=== PATIENT | female | born 1960 | race Hispanic/Latino ===

== ENCOUNTER 2017-01-18 22:08 | Inpatient (IN) | payer OTHER, SELFPAY ==
[~2017-01-18 22:08] MED LIST: ISOVUE-370 76%-LOCM 1 ML ONE
[2017-01-18 22:56] LABS: #Lymphocytes 0.6 thou/uL (1.20-3.40); #Monocytes 0.3 thou/uL (0.11-0.59); #Neutrophils 2.8 thou/uL (1.40-6.50); %Basophils 0.4 % (0.0-1.0); %Eosinophils 1.2 % (0.0-10.0); %Monocytes 7.2 % (0.0-10.0); Hematocrit 29.6 % (36.0-47.0); Macrocytosis SLIGHT = 6-15 cells (100X) (0-5/hpf); Mean Platelet Volume 8.8 fL (7.4-10.4); Red Blood Cell (RBC) Count 2.81 mill/uL (4.20-5.40); White Blood Cell (WBC) Count 3.7 thou/uL (4.8-10.8)
[2017-01-18 23:00] LABS: ALT (SGPT) 35 U/L (8-55); ALT (SGPT) 36 U/L (8-55); AST (SGOT) 86 U/L (5-34); AST (SGOT) 88 U/L (5-34); Alkaline Phosphatase 170 U/L (40-150); Alkaline Phosphatase 178 U/L (40-150); Anion Gap 15 mmol/L (10-20); BUN (Urea Nitrogen) 16 mg/dL (9.8-20.1); Bilirubin, Direct 1.4 mg/dL (0.1-0.3); Bilirubin, Total 2.3 mg/dL (0.2-1.2); Bilirubin, Total 2.4 mg/dL (0.2-1.2); Calc. Creatinine Clearance 0 mL/min (70-130); Calcium 8.6 mg/dL (7.8-10.44); Carbon Dioxide 19 mmol/L (22-29); Chloride 103 mmol/L (98-107); Estimated GFR-MDRD 31; Globulin 5.4 g/dL (2.4-3.5); Protein, Total 7.5 g/dL (6.0-8.3); Protein, Total 7.8 g/dL (6.0-8.3)
[2017-01-18 23:14] LABS: Bilirubin Negative (Negative); Blood, Urine Negative (Negative); Glucose, Urine (Dipstick) Negative (Negative); Ketone, Urine Trace mg/dL (Negative); Nitrite Negative (Negative); Protein, Urine (Dipstick) Negative (Neg-Trace)
[2017-01-18 23:16] LABS: Bacteria/HPF 4+ HPF (None Seen); Hyaline Casts/LPF 0-3 HYALINE CAST LPF (0-3 Hyaline); Squamous Epithelial None Seen HPF (0-3); WBC/HPF 21-50 HPF (0-3)
[2017-01-18 23:17] LABS: Troponin I 0.091 ng/mL (< 0.028)
--- NOTE | 2017-01-18 23:19 | RAD ---
SINGLE VIEW OF THE CHEST: Comparison: 11-25-16 History: Chronic liver failure with altered mental status. FINDINGS: Single view of the chest shows a normal sized cardiomediastinal silhouette. There is no evidence of consolidation, mass, or pleural effusion. The bones are unremarkable. IMPRESSION: No evidence of acute cardiopulmonary disease. POS: [facility]
--- NOTE | 2017-01-18 23:25 | CT ---
CT BRAIN WITHOUT CONTRAST: History: Altered mental status since 3 o'clock today. Hematuria and hematochezia. Comparison: 11-25-16 Technique: Multiple contiguous axial images were obtained in a CT of the brain without contrast. FINDINGS: There are scattered hypodensities in the subcortical and periventricular white matter, likely second mary to small vessel ischemic disease. No large confluent infarction is seen. There is no evidence of hydrocephalus, intracranial hemorrhage or extraaxial fluid collection. The calvarium and overlying soft tissues are unremarkable. The visualized paranasal sinuses and mast oid air cells are well aerated. IMPRESSION: No evidence of acute intracranial abnormality. POS: [facility]
[2017-01-18 23:26] LABS: RBC/HPF None Seen HPF (0-3)
--- NOTE | 2017-01-18 23:30 | CT ---
CT ABDOMEN AND PELVIS WITH CONTRAST: Comparison: 02-21-15 History: Altered mental status, liver failure. Hematochezia and hematuria. Technique: Multiple contiguous axial images were obtained in a CT of the abdomen and pelvis with con trast. Coronal reformats were performed. FINDINGS: The liver is nodular and cirrhotic. There is a small amount of ascites in the abdomen and pelvis. Th ere are calcified gallstones in the gallbladder. No biliary dilatation is seen. The kidneys, adrenal glands, spleen, and pancreas are unremarkable. There are splenic varices. No abdominal or pelvic ly mphadenopathy are seen. The reproductive organs are unremarkable. Moderate stool is seen in the colon. The small bowel is no rmal in caliber. No abdominal or pelvic lymphadenopathy are seen. There is a 7.6 cm ventral hernia containing nonobstructed bowel. Degenerative changes are seen in the spine. The visualized inferior thorax is unremarkable. IMPRESSION: 1. Cirrhosis of the liver with sequellae of portal hypertension. 2. Cholelithiasis. 3. Ventral hernia. POS: [facility]
[2017-01-18] MEDS ORDERED: Sodium Chloride 0.9% 100 ML ONE (23:57)
[2017-01-18] MEDS ORDERED: cefTRIAXone\\ROCEPHIN 1 GM VIAL ONE (23:57)
[2017-01-19] MEDS ORDERED: Ondansetron HCl/PF 4 MG/2 ML Vial IVP PRN (00:21)
[2017-01-19] MEDS ORDERED: Dextrose 5% in Water 1,000 ML IV PRN (00:27)
[2017-01-19] MEDS ORDERED: HumaLOG 300 UNITS/3 ML VIAL SC PRN (00:27)
[2017-01-19] MEDS ORDERED: Dextrose 50% Abboject 50 ML SYRINGE SLOW IVP PRN (00:27)
--- NOTE | 2017-01-19 01:09 | PDOC.EVN ---
Event Note - Event Note Event Note: [id number] H&P Dictated 1. HEPATIC ENCEPHALOPATHY 2. PANCYTOPENIA 3. H/O GI Bleed 4. DM Type 2
[2017-01-19] MEDS ORDERED: Octreotide Acetate 1,250 MCG in Sodium Chloride 0.9% 250 ML 250 ML IVPB SCH (01:15)
[2017-01-19] MEDS ORDERED: Octreotide Acetate 50 MCG/ML AMP SLOW IVP SCH (01:30)
[2017-01-19 03:50] LABS: #Lymphocytes 0.4 thou/uL (1.20-3.40); #Monocytes 0.2 thou/uL (0.11-0.59); #Neutrophils 1.7 thou/uL (1.40-6.50); %Eosinophils 1.5 % (0.0-10.0); %Lymphocytes 16.5 % (21.0-51.0); %Monocytes 8.9 % (0.0-10.0); Mean Platelet Volume 9.1 fL (7.4-10.4); Red Blood Cell (RBC) Count 2.54 mill/uL (4.20-5.40); White Blood Cell (WBC) Count 2.3 thou/uL (4.8-10.8)
[2017-01-19 03:52] LABS: ALT (SGPT) 32 U/L (8-55); AST (SGOT) 80 U/L (5-34); Alkaline Phosphatase 153 U/L (40-150); Anion Gap 15 mmol/L (10-20); BUN (Urea Nitrogen) 16 mg/dL (9.8-20.1); Calc. Creatinine Clearance 0 mL/min (70-130); Calcium 8.6 mg/dL (7.8-10.44); Carbon Dioxide 17 mmol/L (22-29); Chloride 105 mmol/L (98-107); Estimated GFR-MDRD 36; Globulin 5.1 g/dL (2.4-3.5)
[2017-01-19] MEDS: Sodium Chloride 0.9% 1,000 ML IV SCH ×2 (05:51→22:26)
[2017-01-19] MEDS ORDERED: Pantoprazole 40 MG VIAL ONE (05:52)
[2017-01-19] MEDS: Pantoprazole 40 MG VIAL IVP SCH ×2 (05:57→16:05)
--- NOTE | 2017-01-19 06:18 | HP ---
DATE OF ADMISSION: 01/19/2017 CHIEF COMPLAINT: Confusion. HISTORY OF PRESENT ILLNESS: The patient is a 56-year-old female with past medical history of ORELLANA, diabetes mellitus type 2, hypertension, obesity, now came to the hospital because of confusion. The patient started having confusion since this afternoon and confusion associated with unsteady gait also. The patient had some tremor intermittent. Denies any fever, denies any chills, denies any nausea. Denies any vomiting. She complains of bloody stool. Denies any active bleeding by the ED physician on rectal exam. The patient did complain of bloody stool. Denies any fever, denies any chills, denies any chest pain, denies any fever, denies any dizziness. Patient was slightly lethargic in the ER, but able to awake and able to converse. PAST MEDICAL HISTORY: As per HPI. PAST SURGICAL HISTORY: EGD, , umbilical hernia repair. SOCIAL HISTORY: Denies smoking, denies alcohol, denies any drugs. MEDICATIONS: Reviewed. FAMILY HISTORY: Positive for diabetes mellitus. REVIEW OF SYSTEMS: CONSTITUTIONAL: Denies any fever, denies any chills. EYES: Denies any vision problems. ENT: Negative. CARDIOVASCULAR: Denies any chest pain, denies any palpitations. RESPIRATORY: Denies any cough, denies production. GASTROINTESTINAL: Positive for bleeding per rectum. CRANIAL NERVE SYSTEM: Denies syncope. Positive for confusion. Positive for unsteady gait. INTEGUMENTARY: Denies any rash. GENITOURINARY: Denies dysuria. All other review of systems are reviewed and are negative. PHYSICAL EXAMINATION: CONSTITUTIONAL/VITAL SIGNS: At the time of H\T\P performed, blood pressure is 110/50, afebrile, respiratory rate 18, pulse ox is 98%. GENERAL: The patient appears tired and lethargic. HEENT: ENT patent. Hearing normal. Teeth intact. Tongue is moist. NECK: Supple, no JVD. CARDIOVASCULAR: S1, S2 present. Regular rate and rhythm. No murmurs, no rubs , no gallops. RESPIRATORY SYSTEM: No wheezing, no rhonchi. Breath sounds bilaterally. ABDOMEN: Distended, no guarding, no organomegaly. MUSCULOSKELETAL: No edema. NEUROLOGIC: Cranial nerve system, is lethargic, but arousable. Oriented to place and person. Speech clear. PSYCHIATRIC: Mood appears normal. INTEGUMENT: No rashes seen. LABORATORY DATA: At the time of H\T\P performed; white count 2.7, hemoglobin 9.7, platelet count is 65. BMP showed sodium 133, potassium 3.9, chloride 103, CO2 of 19, BUN 16, creatinine 1.71, total bilirubin 2.4, albumin 2.1, ammonia 118. UA positive for WBCs 21-50, positive for bacteria. ASSESSMENT AND PLAN: The patient is a 56-year-old female. 1. Hepatic encephalopathy. Plan to start the patient on lactulose 20 grams p.o. q.6 h. We will give lactulose until the patient had initial bowel movement. We will monitor the patient closely. 2. History of gastrointestinal bleed. Stool occult blood is positive. Plan to check H\T\H q.6 hours, plan to place the patient on octreotide drip and ____ _ drip also and Protonix drip. We will monitor hemoglobin closely. We will consult GI to the patient. 3. History of diabetes mellitus type 2. Monitor blood sugars. We will do insulin sliding scale. 4. History of pancytopenia, monitor counts, repeat CBC in a.m. We will do H\T\ H q.6 hours. 5. Acute kidney injury. Monitor creatinine closely and hold diuretics, gentle IV fluids. 6. History of hypertension. Hold blood pressure meds and we will monitor the patient. BP meds slowly. The case was discussed in detail with the patient. Patient is a full code. Discussed with the patient's also at the bedside. YUE
[2017-01-19 07:46] LABS: Magnesium 1.6 mg/dL (1.6-2.6)
[2017-01-19 07:50] LABS: Phosphorus 3.3 mg/dL (2.3-4.7)
[2017-01-19] MEDS ORDERED: Nadolol 40 MG TAB PO SCH (09:00)
[2017-01-19] MEDS ORDERED: Sodium Bicarbonate Tab 325 MG TAB PO SCH (09:00)
[2017-01-19] MEDS ORDERED: Insulin NPH/Reg Insulin Hm 300 UNITS/3 ML VIAL SC SCH (09:00)
[2017-01-19] MEDS ORDERED: Famotidine/PF 20 mg/2ml Vial SLOW IVP SCH (09:00)
[2017-01-19 12:16] LABS: Hematocrit 25.5 % (36.0-47.0)
[2017-01-19] MEDS ORDERED: Famotidine/PF 20 mg/2ml Vial ONE (12:23)
[2017-01-19] MEDS ORDERED: Calcium Carbonate 500 MG ChewTAB PO PRN (12:28)
[2017-01-19] MEDS ORDERED: Ondansetron ODT 4 MG TAB PO PRN (12:28)
[2017-01-19] MEDS ORDERED: cefTRIAXone\\ROCEPHIN 1 GM in Sodium Chloride 0.9% 100 ML IVPB SCH (14:00)
[2017-01-19] MEDS: Sodium Bicarbonate Tab 325 MG TAB PO SCH ×2 (15:51→22:26)
[2017-01-19] MEDS ORDERED: Albumin 25% 25 GM/100 ML BOT IVPB SCH (17:00)
[2017-01-19 18:15] LABS: Hematocrit 30.4 % (36.0-47.0)
[2017-01-19 18:23] LABS: Anion Gap 16 mmol/L (10-20); BUN (Urea Nitrogen) 15 mg/dL (9.8-20.1); Calc. Creatinine Clearance 55 mL/min (70-130); Calcium 8.5 mg/dL (7.8-10.44); Carbon Dioxide 17 mmol/L (22-29); Chloride 105 mmol/L (98-107); Estimated GFR-MDRD 38
--- NOTE | 2017-01-20 00:20 | CON ---
DATE OF CONSULTATION: 01/19/2017 CHIEF COMPLAINT: Confusion. HISTORY OF PRESENT ILLNESS: Ms. Rosas is a 56-year-old woman with end-stage liver disease who c vicki to the emergency room last night with confusion. She was last admitted in May with hepatic encephalopathy. She has had no nausea or vomiting. No known blood in the stool. No chest pain or shortness of breath. The admitting physician note references blood in the stool; however, the patie nt does not indicate having seen any blood currently. She has had no bowel movement since she has b een in the intermediate care unit. She apparently had a bowel movement in the ER; however, unable t o determine with this stool looked like. PAST MEDICAL HISTORY: Cirrhosis, likely secondary to nonalcoholic fatty liver disease. Small varic es without red signs by EGD in 06/2015. History of ascites with spontaneous bacterial peritonitis, diabetes mellitus type 2, hypertension, obesity. PAST SURGICAL HISTORY: , umbilical hernia repair. FAMILY HISTORY: Negative for GI malignancy. ALLERGIES: No known drug allergies. SOCIAL HISTORY: No alcohol, tobacco or drugs. MEDICATIONS: Prior to admission, glipizide, thiamine, spironolactone, pantoprazole, multiple vitami n, Levemir, lactulose 15 mL 3 to 4 times per day, furosemide 20 mg daily, folic acid, B12 and the sp ironolactone was 50 mg daily. Her indicated that she has only been taking the lactulose lat varinder. I am not clear on the actual status of her diuretic use. REVIEW OF SYSTEMS: Negative x10 systems reviewed except as stated in the history of present illness . The communication was limited by the language barrier. PHYSICAL EXAMINATION: VITAL SIGNS: Temperature 98.5, pulse 102, blood pressure 96/55. GENERAL: She is in no acute distress. She is awake and alert. HEENT: Eyes have no scleral icterus. Oropharynx is clear, without lesions. NECK: No cervical or supraclavicular lymphadenopathy. LUNGS: Clear to auscultation bilaterally. HEART: Regular rate and rhythm. ABDOMEN: Obese, bowel sounds are present, nontender, nondistended. EXTREMITIES: Trace lower extremity edema. NEUROLOGIC: She has no asterixis. LABORATORY DATA: White blood cell count 2.3, hemoglobin 8.8, platelets 45,000. INR 1.3. Creatinin e 1.43. IMAGING: CT scan of the abdomen and pelvis shows ventral hernia. A small amount of ascites was not ed, but not adequate for paracentesis. IMPRESSION: 1. Hepatic encephalopathy. No obvious triggering factor at this point. Her mental status has retu rned back to normal according to her family; however, she is not having bowel movements this afterno on. She apparently did have a bowel movement in the ER with the lactulose. 2. Cirrhosis secondary to prior fatty liver disease. 3. Ascites. She has a small amount of ascites and trace lower extremity edema. She does have a hi story of spontaneous bacterial peritonitis. Inadequate fluid in her belly to tap now and she is non tender. She has apparently been on low dose spironolactone and Lasix; however, she has chronic froy l insufficiency and unclear if she has actually been taking the diuretics recently. Given the prior spontaneous bacterial peritonitis, then she should be on prophylaxis with Bactrim daily and this wi ll be started. 4. Pancytopenia secondary to hypersplenism. 5. Hepatoma screening. The CT scan with contrast did not show an obvious mass. I will check an al pha fetoprotein. PLAN: 1. Increase the lactulose to 45 mL 4 times a day, this is actually closer to her home dose. 2. Low salt diet. 3. Check alpha fetoprotein. 4. Recheck the hemoglobin in the morning. No need to check it more frequently than daily. She has no overt bleeding at this point. 5. Restart Bactrim-DS once daily for SBP prophylaxis. 6. She has not followed up in the office since her last hospitalization in May. She will need to schedule outpatient followup. Ideally, we give her Xifaxan daily, but given her lack of insuranc e, this has not been an option. 7. Stop octreotide drip as there is no evidence of overt bleeding. Stop propranolol as she has had prior SBP and renal insufficiency. She just had small varices without red signs on previous endosc opy.
[2017-01-20] MEDS: Pantoprazole 40 MG VIAL IVP SCH ×2 (03:34→12:50)
[2017-01-20 04:21] LABS: #Lymphocytes 0.1 thou/uL (1.20-3.40); #Neutrophils 2.3 thou/uL (1.40-6.50); %Basophils 1.9 % (0.0-1.0); %Eosinophils 0.9 % (0.0-10.0); %Lymphocytes 5.6 % (21.0-51.0); %Monocytes 0.9 % (0.0-10.0); Hematocrit 24.6 % (36.0-47.0); Mean Platelet Volume 9.1 fL (7.4-10.4); Red Blood Cell (RBC) Count 2.27 mill/uL (4.20-5.40); White Blood Cell (WBC) Count 2.5 thou/uL (4.8-10.8)
[2017-01-20 04:38] LABS: ALT (SGPT) 30 U/L (8-55); AST (SGOT) 80 U/L (5-34); Alkaline Phosphatase 142 U/L (40-150); Anion Gap 17 mmol/L (10-20); BUN (Urea Nitrogen) 17 mg/dL (9.8-20.1); Bilirubin, Total 2.6 mg/dL (0.2-1.2); Calc. Creatinine Clearance 59 mL/min (70-130); Calcium 8.4 mg/dL (7.8-10.44); Carbon Dioxide 17 mmol/L (22-29); Chloride 105 mmol/L (98-107); Estimated GFR-MDRD 41; Globulin 4.7 g/dL (2.4-3.5); Protein, Total 6.9 g/dL (6.0-8.3)
[2017-01-20] MEDS ORDERED: Nadolol 40 MG TAB PO SCH (09:00)
[2017-01-20] MEDS ORDERED: Rifaximin 550 MG TAB PO SCH (09:15)
[2017-01-20] MEDS ORDERED: Lactulose 10 GM/15 ML Oral Solution PR SCH ×2 (11:15→17:15)
[2017-01-20] MEDS: Meropenem 1 GM in Sodium Chloride 0.9% 100 ML IVPB SCH ×2 (13:56→21:24)
[2017-01-20] MEDS: Sodium Bicarbonate Tab 325 MG TAB PO SCH (14:07)
--- NOTE | 2017-01-20 14:53 | PRG ---
DATE OF SERVICE: 01/20/2017 SUBJECTIVE: She had a bowel movement last night. This morning, she was actually more confused and less easily responsive. She did have another pasty yellow bowel movement this morning: OBJECTIVE: VITAL SIGNS: Temperature 98.3, pulse 106 and blood pressure 103/51. GENERAL: She is in no acute distress. She awakens briefly to verbal stimulation and falls back asl eep. LUNGS: Clear to auscultation bilaterally. HEART: Regular rate and rhythm. ABDOMEN: Soft. No obvious tenderness. Bowel sounds are present. EXTREMITIES: No lower extremity edema. LABORATORY DATA: White blood cell count 2.5, hemoglobin 8.3 and platelets 45. Creatinine 1.35, sheldon irubin 2.6, AST 80, ALT 30, alkaline phosphatase 142 and albumin 2.2. IMPRESSION: 1. Hepatic encephalopathy. Her mental status is actually somewhat worsened today. We will give a lactulose enema. She does not appear to be safe for oral intake at this time due to her mental stat us. 2. Cirrhosis secondary to fatty liver disease. 3. Small amount of ascites. She does have a history of spontaneous bacterial peritonitis. We will continue Bactrim DS once daily for spontaneous bacterial peritonitis prophylaxis. 4. Pancytopenia secondary to hypersplenism. 5. Hepatoma screening. 6. Hemoglobin has fluctuated between 8.3 and 9.7. There has been no overt bleeding with the last b owel movement. She has had some pink-tinged stool with the lactulose enema, but this is with the re ctal tube in place. This may be due to local irritation from the rectal tube. RECOMMENDATIONS: 1. Lactulose enema. Repeat if she does not awaken adequately to take the lactulose orally. 2. When she is awake from the enema, then increase the lactulose to 45 mL every 4 hours. 3. Low salt diet when she is awake enough to take oral diet. 4. Await alpha-fetoprotein.
[2017-01-20] MEDS: Sodium Chloride 0.9% 1,000 ML IV SCH (19:44)
--- NOTE | 2017-01-20 20:55 | PDOC.PN ---
- Subjective Encounter Start Date: 01/20/17 Encounter Start Time: 12:00 Patient seen and examined. Lethargic. - Objective Resuscitation Status: Resuscitation Status FULL:Full Resuscitation MAR Reviewed: Yes Vital Signs & Weight: Vital Signs (12 hours) Temp Pulse Resp BP BP Pulse Ox 01/20/17 15:50 97.7 F 110 H 16 96/54 L 98 01/20/17 12:00 98.3 F 106 H 15 103/51 L 100 Weight Weight 174 lb I&O: 01/19/17 01/20/17 01/21/17 06:59 06:59 06:59 Intake Total 1034 710 Balance 1034 710 Result Diagrams: 01/21/17 03:45 01/21/17 03:45 Additional Labs: Accuchecks 01/20/17 01/20/17 01/20/17 20:33 16:06 10:36 POC Glucose 383 H 307 H 249 H 01/20/17 01/20/17 01/19/17 08:57 05:28 23:57 POC Glucose 207 H 342 H 356 H 01/19/17 16:53 POC Glucose 278 H EKG Reviewed by me: Yes (Tele SR) Phys Exam - Physical Examination Lethargic, grimacing on pain Respiratory: no wheezing, no rhonchi Cardiovascular: RRR, no rub Gastrointestinal: soft, non-tender, positive bowel sounds Musculoskeletal: no edema Dx/Plan (1) Toxic metabolic encephalopathy Code(s): G92 - TOXIC ENCEPHALOPATHY Status: Acute Comment: due to Hepatic encephalopathy. Ammonia 122 (2) Lactic acidosis Code(s): E87.2 - ACIDOSIS Status: Acute (3) UTI (urinary tract infection) Status: Acute (4) DM type 2 (diabetes mellitus, type 2) Status: Chronic Qualifiers: Comment: uncontrolled (5) Liver cirrhosis secondary to nonalcoholic steatohepatitis (ORELLANA) Code(s): K75.81 - NONALCOHOLIC STEATOHEPATITIS (ORELLANA); K74.60 - UNSPECIFIED CIRRHOSIS OF LIVER Status: Chronic - Plan cont current plan of care, plan discussed w/ family (they stated understanding) , DVT proph w/SCDs * Change Atbx to Meropenem * Cont Lactulose enema per GI * AM labs * Cont to monitor Review of Systems - Review of Systems Other: Cannot obtain due to sedation - Medications/Allergies Allergies/Adverse Reactions: Allergies Allergy/AdvReac Type Severity Reaction Status Date / Time No Known Drug Allergies Allergy Verified 01/19/17 15:25 Medications: Current Medications Calcium Carbonate (Tums) 1,000 mg PO Q4H PRN PRN Reason: Heartburn or Indigestion Dextrose/Water (Dextrose 50%) 25 gm SLOW IVP PRN PRN PRN Reason: Hypoglycemia Glucagon (Glucagon) 1 mg IM PRN PRN PRN Reason: Hypoglycemia Sodium Chloride (Normal Saline 0.9%) 1,000 mls @ 50 mls/hr IV .Q20H [facility] Last Admin: 01/20/17 19:44 Dose: 1,000 mls Dextrose/Water (D5w) 1,000 mls @ 0 mls/hr IV .Q0M PRN; As Directed PRN Reason: Hypoglycemia Meropenem 1 gm/ Sodium (Chloride) 100 mls @ 200 mls/hr IVPB Q8H [facility] Last Admin: 01/20/17 13:56 Dose: 100 mls Insulin Human Lispro (Humalog) 0 units SC .BEDTIME SLIDING SC PRN PRN Reason: Bedtime Correctional Scale Insulin Human Lispro (Humalog) 0 units SC .MILD SLIDING SCALE PRN PRN Reason: Mild Correctional Scale Lactulose (Lactulose) 30 gm PO Q4HR [facility] Last Admin: 01/20/17 18:19 Dose: Not Given Miscellaneous Medication (Pharmacy To Dose) 1 each IVPB ASDIR [facility] Ondansetron HCl (Zofran) 4 mg IVP Q6H PRN PRN Reason: Nausea/Vomiting Ondansetron HCl (Zofran Odt) 4 mg PO Q6H PRN PRN Reason: Nausea/Vomiting Pantoprazole Sodium (Protonix) 40 mg IVP Q12H [facility] Last Admin: 01/20/17 12:50 Dose: 40 mg Rifaximin (Xifaxan) 550 mg PO BID [facility] Sodium Bicarbonate (Bicarbonate, Sodium) 650 mg PO BID [facility] Last Admin: 01/20/17 14:07 Dose: Not Given Sodium Chloride (Flush - Normal Saline) 10 ml IVF Q12HR [facility] Last Admin: 01/20/17 12:41 Dose: 10 ml Sodium Chloride (Flush - Normal Saline) 10 ml IVF PRN PRN PRN Reason: Saline Flush Last Admin: 01/19/17 16:08 Dose: 10 ml
[2017-01-21] MEDS: Sodium Bicarbonate Tab 325 MG TAB PO SCH ×3 (01:20→20:13)
[2017-01-21] MEDS: Rifaximin 550 MG TAB PO SCH ×3 (01:20→20:10)
[2017-01-21] MEDS: Pantoprazole 40 MG VIAL IVP SCH ×3 (01:38→20:12)
[2017-01-21 04:13] LABS: #Lymphocytes 0.4 thou/uL (1.20-3.40); #Monocytes 0.3 thou/uL (0.11-0.59); #Neutrophils 4.4 thou/uL (1.40-6.50); %Eosinophils 0.2 % (0.0-10.0); %Lymphocytes 7.5 % (21.0-51.0); %Monocytes 6.7 % (0.0-10.0); Hematocrit 25.2 % (36.0-47.0); Mean Platelet Volume 9.3 fL (7.4-10.4); White Blood Cell (WBC) Count 5.1 thou/uL (4.8-10.8)
[2017-01-21 04:18] LABS: Prothrombin Time 26.8 SEC (12.0-14.7)
[2017-01-21 04:42] LABS: ALT (SGPT) 32 U/L (8-55); AST (SGOT) 73 U/L (5-34); Alkaline Phosphatase 135 U/L (40-150); Anion Gap 13 mmol/L (10-20); BUN (Urea Nitrogen) 22 mg/dL (9.8-20.1); Bilirubin, Total 2.4 mg/dL (0.2-1.2); Calc. Creatinine Clearance 51 mL/min (70-130); Calcium 8.4 mg/dL (7.8-10.44); Carbon Dioxide 17 mmol/L (22-29); Chloride 112 mmol/L (98-107); Estimated GFR-MDRD 35; Globulin 4.6 g/dL (2.4-3.5); Magnesium 1.4 mg/dL (1.6-2.6); Phosphorus 3.7 mg/dL (2.3-4.7); Protein, Total 6.7 g/dL (6.0-8.3)
[2017-01-21] MEDS: Meropenem 1 GM in Sodium Chloride 0.9% 100 ML IVPB SCH ×3 (05:48→20:09)
[2017-01-21] MEDS: HumaLOG 300 UNITS/3 ML VIAL SC PRN ×4 (06:08→20:19)
[2017-01-21] MEDS ORDERED: Magnesium 2 GM/NS 0.9% 100 ML 2 GM in Premix Bag 1 BAG IVPB SCH (07:00)
[2017-01-21] MEDS ORDERED: NPH, Human Insulin Isophane 300 UNIT/3 ML VIAL SC SCH ×2 (11:00→21:00)
[2017-01-21] MEDS: Sodium Chloride 0.9% 1,000 ML IV SCH (16:41)
--- NOTE | 2017-01-21 19:35 | PDOC.PN ---
- Subjective Encounter Start Date: 01/21/17 Encounter Start Time: 18:00 Patient seen and examined. No new complaints. No overnight events. Mentation slowly improving. Excessive watery stool. - Objective Resuscitation Status: Resuscitation Status FULL:Full Resuscitation MAR Reviewed: Yes Vital Signs & Weight: Vital Signs (12 hours) Temp Pulse Resp BP Pulse Ox 01/21/17 15:47 98.1 F 102 H 20 116/76 99 01/21/17 11:37 98.4 F 94 16 102/53 L 100 01/21/17 08:00 97.8 F 112 H 18 99 Weight Weight 176 lb I&O: 01/20/17 01/21/17 01/22/17 06:59 06:59 06:59 Intake Total 1034 1243 Output Total 2100 600 Balance 1034 -857 -600 Result Diagrams: 01/21/17 03:45 01/21/17 03:45 Additional Labs: Accuchecks 01/21/17 01/21/17 01/21/17 16:04 12:03 08:52 POC Glucose 423 H 343 H 345 H 01/21/17 01/20/17 05:31 20:33 POC Glucose 444 H 383 H EKG Reviewed by me: Yes (Tele SR) Phys Exam - Physical Examination Constitutional: NAD Respiratory: no wheezing, no rhonchi Cardiovascular: RRR, no rub Gastrointestinal: soft, non-tender, positive bowel sounds Musculoskeletal: no edema Neurological: moves all 4 limbs Asterixis Dx/Plan (1) Toxic metabolic encephalopathy Code(s): G92 - TOXIC ENCEPHALOPATHY Status: Acute Comment: due to Hepatic encephalopathy. Ammonia 122 (2) Lactic acidosis Code(s): E87.2 - ACIDOSIS Status: Acute (3) UTI (urinary tract infection) Status: Acute Comment: ESBL (4) DM type 2 (diabetes mellitus, type 2) Status: Chronic Qualifiers: Comment: uncontrolled (5) Liver cirrhosis secondary to nonalcoholic steatohepatitis (ORELLANA) Code(s): K75.81 - NONALCOHOLIC STEATOHEPATITIS (ORELLANA); K74.60 - UNSPECIFIED CIRRHOSIS OF LIVER Status: Chronic - Plan cont current plan of care, continue antibiotics, DVT proph w/SCDs * GI following * Cont Lactuloss * Consult ID for ESBL UTI * Cont Meropenem * AM labs * Consut PT * Cont current meds as below Review of Systems - Review of Systems Constitutional: negative: Fever, Chills, Sweats, Weakness, Malaise, Other Respiratory: negative: Cough, Dry, Shortness of Breath, Hemoptysis, SOB with Excertion, Pleuritic Pain, Sputum, Wheezing Cardiovascular: negative: Chest Pain, Palpitations, Orthopnea, Paroxysmal Noc. Dyspnea, Edema, Light Headedness, Other Gastrointestinal: Diarrhea. negative: Nausea, Vomiting, Abdominal Pain, Constipation, Melena, Hematochezia, Other - Medications/Allergies Allergies/Adverse Reactions: Allergies Allergy/AdvReac Type Severity Reaction Status Date / Time No Known Drug Allergies Allergy Verified 01/19/17 15:25 Medications: Current Medications Calcium Carbonate (Tums) 1,000 mg PO Q4H PRN PRN Reason: Heartburn or Indigestion Dextrose/Water (Dextrose 50%) 25 gm SLOW IVP PRN PRN PRN Reason: Hypoglycemia Glucagon (Glucagon) 1 mg IM PRN PRN PRN Reason: Hypoglycemia Sodium Chloride (Normal Saline 0.9%) 1,000 mls @ 50 mls/hr IV .Q20H [facility] Last Admin: 01/21/17 16:41 Dose: 1,000 mls Dextrose/Water (D5w) 1,000 mls @ 0 mls/hr IV .Q0M PRN; As Directed PRN Reason: Hypoglycemia Meropenem 1 gm/ Sodium (Chloride) 100 mls @ 200 mls/hr IVPB Q8H [facility] Last Admin: 01/21/17 12:22 Dose: 100 mls Insulin Human Lispro (Humalog) 0 units SC .BEDTIME SLIDING SC PRN PRN Reason: Bedtime Correctional Scale Insulin Human Lispro (Humalog) 0 units SC .MILD SLIDING SCALE PRN PRN Reason: Mild Correctional Scale Last Admin: 01/21/17 16:41 Dose: 6 unit Insulin Human NPH (Humulin N) 5 unit SC BID [facility] Lactulose (Lactulose) 30 gm PO Q4HR [facility] Last Admin: 01/21/17 16:41 Dose: 30 gm Miscellaneous Medication (Pharmacy To Dose) 1 each IVPB ASDIR [facility] Ondansetron HCl (Zofran) 4 mg IVP Q6H PRN PRN Reason: Nausea/Vomiting Ondansetron HCl (Zofran Odt) 4 mg PO Q6H PRN PRN Reason: Nausea/Vomiting Pantoprazole Sodium (Protonix) 40 mg IVP Q12HR [facility] Rifaximin (Xifaxan) 550 mg PO BID [facility] Last Admin: 01/21/17 08:42 Dose: 550 mg Sodium Bicarbonate (Bicarbonate, Sodium) 650 mg PO BID [facility] Last Admin: 01/21/17 08:42 Dose: 650 mg Sodium Chloride (Flush - Normal Saline) 10 ml IVF Q12HR [facility] Last Admin: 01/21/17 08:42 Dose: 10 ml Sodium Chloride (Flush - Normal Saline) 10 ml IVF PRN PRN PRN Reason: Saline Flush Last Admin: 01/19/17 16:08 Dose: 10 ml
--- NOTE | 2017-01-21 21:38 | PRG ---
DATE OF SERVICE: 01/21/2017 SUBJECTIVE: She has been more alert today. She received 2 lactulose enemas yesterday and last nigh t and has been able to take her lactulose by mouth today. She has had watery stools with that now a nd has a rectal tube in place. She did eat some when her fed her today. She is more respon sive an appropriately weight. OBJECTIVE: VITAL SIGNS: Temperature is 98.1, pulse 102, blood pressure 116/76. GENERAL: She is in no acute distress. She is awake and alert. LUNGS: Clear to auscultation bilaterally. HEART: Regular rate and rhythm. ABDOMEN: Soft, nontender, nondistended. Bowel sounds are present. EXTREMITIES: No lower extremity edema. No obvious asterixis currently. LABORATORY DATA: Her blood sugars have been running in the 400s, creatinine 1.54. INR 2.4. White blood cell count 5.1, hemoglobin 8.1, platelets 42. IMPRESSION: 1. Hepatic encephalopathy. She worsened further yesterday, but starting to improve today. She rec eived 2 lactulose enemas yesterday. She is on lactulose q.4 hours and this will be back off every 6 hours now that she is having excessive stool output. Encephalopathy may have been triggered by uri nary tract infection. 2. Cirrhosis secondary to fatty liver disease. 3. Mild ascites with a history of SBP in the past. She is on broad spectrum antibiotics now, but w hen these are discontinued and she is discharged home. She can transition back to Bactrim-DS once d aily for prophylaxis. She is receiving low rate of normal saline now. Diuretics have been held. 4. Anemia, stable. 5. Urinary tract infection. Her urine grew Escherichia coli. RECOMMENDATIONS: 1. She remains on antibiotics. 2. Continue rifaximin. 3. Reduce the lactulose to every 6 hours and if she continues to have watery diarrhea, reduce the d ose to 30 mL every 6 hours.
[2017-01-22] MEDS: HumaLOG 300 UNITS/3 ML VIAL SC PRN ×4 (00:44→20:15)
[2017-01-22] MEDS: Meropenem 1 GM in Sodium Chloride 0.9% 100 ML IVPB SCH ×2 (04:19→12:07)
[2017-01-22 06:31] LABS: #Eosinphils 0.1 thou/uL (0.0-0.7); #Lymphocytes 0.5 thou/uL (1.20-3.40); #Monocytes 0.4 thou/uL (0.11-0.59); #Neutrophils 2.3 thou/uL (1.40-6.50); %Basophils 0.3 % (0.0-1.0); %Lymphocytes 14.6 % (21.0-51.0); %Monocytes 11.4 % (0.0-10.0); Hematocrit 25.5 % (36.0-47.0); Mean Platelet Volume 9.8 fL (7.4-10.4); Red Blood Cell (RBC) Count 2.34 mill/uL (4.20-5.40); White Blood Cell (WBC) Count 3.2 thou/uL (4.8-10.8)
[2017-01-22 06:42] LABS: ALT (SGPT) 30 U/L (8-55); AST (SGOT) 58 U/L (5-34); Alkaline Phosphatase 135 U/L (40-150); Anion Gap 10 mmol/L (10-20); BUN (Urea Nitrogen) 26 mg/dL (9.8-20.1); Bilirubin, Total 1.8 mg/dL (0.2-1.2); Calc. Creatinine Clearance 61 mL/min (70-130); Calcium 8.3 mg/dL (7.8-10.44); Carbon Dioxide 20 mmol/L (22-29); Chloride 116 mmol/L (98-107); Estimated GFR-MDRD 41; Globulin 4.6 g/dL (2.4-3.5); Phosphorus 2.2 mg/dL (2.3-4.7); Protein, Total 6.6 g/dL (6.0-8.3)
[2017-01-22] MEDS ORDERED: Potassium Phosphate 15 MMOL in Sodium Chloride 0.9% 250 ML 250 ML IVPB SCH (08:45)
[2017-01-22] MEDS: Sodium Bicarbonate 50 MEQ in Sodium Chloride 0.45% 1,000 ML IV SCH (09:17)
[2017-01-22] MEDS: Pantoprazole 40 MG VIAL IVP SCH ×2 (09:18→20:14)
[2017-01-22] MEDS: NPH, Human Insulin Isophane 300 UNIT/3 ML VIAL SC SCH ×2 (09:18→20:14)
[2017-01-22] MEDS: Sodium Bicarbonate Tab 325 MG TAB PO SCH ×2 (09:19→20:13)
[2017-01-22] MEDS: Rifaximin 550 MG TAB PO SCH ×2 (09:19→20:14)
--- NOTE | 2017-01-22 15:39 | CON ---
DATE OF CONSULTATION: 01/22/2017 REASON FOR CONSULTATION: Evaluate urinary tract findings. HISTORY OF PRESENT ILLNESS: A 56-year-old history of steatohepatitis with cirrhosis, type 2 diabete s, hypertension who was brought in because of encephalopathy. No headaches, fever or chills, no cou gh or sputum production. No abdominal pain, no diarrhea, no genitourinary symptoms, had little bit of hematochezia, but that was transient. PAST MEDICAL HISTORY: Includes steatohepatitis, diabetes type 2, obesity, hypertension, and has had episodes of spontaneous bacterial peritonitis in 2016, prior episodes of encephalopathy secondary t o cirrhosis, has been treated for urinary tract infections in the past, mostly positive urine cultur e, but never had bacteremic invasive infectious process associated with UTI. SOCIAL HISTORY: Never a smoker. , lives in town with . No alcoholic beverage use. PAST SURGICAL HISTORY: EGD, , umbilical hernia repair, paracentesis. FAMILY HISTORY: Diabetes type 2. CURRENT MEDICATIONS: Tums, D5W, glucagon, insulin, lactulose, meropenem, rifaximin. PHYSICAL EXAMINATION: VITAL SIGNS: She has been afebrile through the hospital stay. Other vital signs are not remarkable , maybe mildly tachycardic. GENERAL: No skin lesions. She has spider angioma at the anterior chest, peripheral IV access. No Boucher catheter. No lymphadenopathy. HEENT: Ocular movements are conjugate. Sclerae white. Pupils are equal. Oral cavity moist with q uite a few teeth in place in fairly decent shape. NECK: Supple, no jugular venous distention. LUNGS: With symmetric air entry with no crackles or wheezing. HEART: S1, S2, no S3, S4 or murmurs. ABDOMEN: Slightly distended, but no evidence of ascites at this time. No bladder distention. No j oint inflammatory activity. She moves extremities on command. She is diffusely weak. Her mental s tatus is improved, but she is still somnolent and has to be aroused for the interview, but recognize s family members and knows she is in the hospital, but could not tell me the date. LABORATORY DATA: Urinalysis 21-50 WBCs. White cell count is at 3.2, hemoglobin 8.3, MCV 109, plate lets 46,000. INR 2.4, creatinine 1.33, potassium 3.1, AST 58, albumin 2.0. Microbiology with E. co allison, 2 different strains greater than 100,000. This is a clean catch specimen, has an ESBL phenotype with susceptibility to nitrofurantoin, but resistance to all the oral regimen. The patient has had an abdomen and pelvis CT, which demonstrated cirrhotic liver, sequelae portal hypertension, small a mount of ascites. Calcified gallstones, no urinary tract abnormalities. ASSESSMENT: Patient has steatohepatitis with admission for encephalopathy, which has improved with management. The findings of urinary tract represent colonization or contamination of the sample, bu t I would not advise treating this finding. Discontinue meropenem and continue rifaximin and other measures for management of encephalopathy.
--- NOTE | 2017-01-22 19:31 | PDOC.PN ---
- Subjective Encounter Start Date: 01/22/17 Encounter Start Time: 09:00 Patient seen and examined. No new complaints. No overnight events. Mentation improving. - Objective Resuscitation Status: Resuscitation Status FULL:Full Resuscitation MAR Reviewed: Yes Vital Signs & Weight: Vital Signs (12 hours) Temp Pulse Resp BP BP BP Pulse Ox 01/22/17 16:00 97.8 F 97 18 122/67 99 01/22/17 11:55 105/60 113/56 L 01/22/17 11:48 97.9 F 103 H 20 93/61 100 01/22/17 08:00 98.4 F 90 16 98/60 98 01/22/17 07:58 98.0 F 82 20 100 Weight Weight 177 lb 3.2 oz I&O: 01/21/17 01/22/17 01/23/17 06:59 06:59 06:59 Intake Total 1243 1180 Output Total 2100 1500 400 Balance -857 -320 -400 Result Diagrams: 01/22/17 05:56 01/22/17 05:56 Additional Labs: Accuchecks 01/22/17 01/22/17 01/22/17 11:04 04:02 00:02 POC Glucose 422 H 275 H 386 H 01/21/17 20:19 POC Glucose 419 H EKG Reviewed by me: Yes (Tele SR) Phys Exam - Physical Examination Constitutional: NAD Respiratory: no wheezing, no rhonchi Cardiovascular: RRR, no rub Gastrointestinal: soft, non-tender, positive bowel sounds Musculoskeletal: no edema Neurological: non-focal, moves all 4 limbs Dx/Plan (1) Toxic metabolic encephalopathy Code(s): G92 - TOXIC ENCEPHALOPATHY Status: Acute Comment: due to Hepatic encephalopathy. (2) Lactic acidosis Code(s): E87.2 - ACIDOSIS Status: Acute Comment: improving (3) UTI (urinary tract infection) Status: Acute Comment: ESBL (4) DM type 2 (diabetes mellitus, type 2) Status: Chronic Qualifiers: Comment: uncontrolled (5) Liver cirrhosis secondary to nonalcoholic steatohepatitis (ORELLANA) Code(s): K75.81 - NONALCOHOLIC STEATOHEPATITIS (ORELLANA); K74.60 - UNSPECIFIED CIRRHOSIS OF LIVER Status: Chronic - Plan cont current plan of care, continue antibiotics, DVT proph w/SCDs * Change IVF to 1/2 NS with bicarb * Increase NPH * Cont Lactulose/Rifaximin * AM labs * GI following Review of Systems - Review of Systems Respiratory: negative: Cough, Dry, Shortness of Breath, Hemoptysis, SOB with Excertion, Pleuritic Pain, Sputum, Wheezing Cardiovascular: negative: Chest Pain, Palpitations, Orthopnea, Paroxysmal Noc. Dyspnea, Edema, Light Headedness, Other Gastrointestinal: negative: Nausea, Vomiting, Abdominal Pain, Diarrhea, Constipation, Melena, Hematochezia, Other - Medications/Allergies Allergies/Adverse Reactions: Allergies Allergy/AdvReac Type Severity Reaction Status Date / Time No Known Drug Allergies Allergy Verified 01/19/17 15:25 Medications: Current Medications Calcium Carbonate (Tums) 1,000 mg PO Q4H PRN PRN Reason: Heartburn or Indigestion Dextrose/Water (Dextrose 50%) 25 gm SLOW IVP PRN PRN PRN Reason: Hypoglycemia Glucagon (Glucagon) 1 mg IM PRN PRN PRN Reason: Hypoglycemia Dextrose/Water (D5w) 1,000 mls @ 0 mls/hr IV .Q0M PRN; As Directed PRN Reason: Hypoglycemia Sodium Bicarbonate 50 meq/ (Sodium Chloride) 1,050 mls @ 50 mls/hr IV .Q21H [facility] Last Admin: 01/22/17 09:17 Dose: 1,050 mls Insulin Human Lispro (Humalog) 0 units SC .BEDTIME SLIDING SC PRN PRN Reason: Bedtime Correctional Scale Last Admin: 01/22/17 00:44 Dose: 5 unit Insulin Human Lispro (Humalog) 0 units SC .MILD SLIDING SCALE PRN PRN Reason: Mild Correctional Scale Last Admin: 01/22/17 17:20 Dose: 6 unit Insulin Human NPH (Humulin N) 10 unit SC BID [facility] Last Admin: 01/22/17 09:18 Dose: 10 unit Lactulose (Lactulose) 30 gm PO Q6HR [facility] Last Admin: 01/22/17 17:20 Dose: 30 gm Miscellaneous Medication (Pharmacy To Dose) 1 each IVPB ASDIR [facility] Ondansetron HCl (Zofran) 4 mg IVP Q6H PRN PRN Reason: Nausea/Vomiting Ondansetron HCl (Zofran Odt) 4 mg PO Q6H PRN PRN Reason: Nausea/Vomiting Pantoprazole Sodium (Protonix) 40 mg IVP Q12HR [facility] Last Admin: 01/22/17 09:18 Dose: 40 mg Rifaximin (Xifaxan) 550 mg PO BID [facility] Last Admin: 01/22/17 09:19 Dose: 550 mg Sodium Bicarbonate (Bicarbonate, Sodium) 650 mg PO BID [facility] Last Admin: 01/22/17 09:19 Dose: 650 mg Sodium Chloride (Flush - Normal Saline) 10 ml IVF Q12HR [facility] Last Admin: 01/22/17 09:19 Dose: 10 ml Sodium Chloride (Flush - Normal Saline) 10 ml IVF PRN PRN PRN Reason: Saline Flush Last Admin: 01/19/17 16:08 Dose: 10 ml
--- NOTE | 2017-01-22 23:03 | PRG ---
DATE OF SERVICE: 01/22/2017 SUBJECTIVE: Ms. Rosas has been a little more alert today. She would eat when her family is [place] and helps her out. She has still had liquidy stools today. She takes her medicine well. OBJECTIVE: VITAL SIGNS: Temperature 97.8, pulse 97, blood pressure 106/63. GENERAL: She is in no acute distress. She is oriented to her name at least. She reports no abdomi nal pain or discomfort with palpation. LUNGS: Clear to auscultation bilaterally. HEART: Regular rate and rhythm. ABDOMEN: Soft. There is no guarding. Bowel sounds are present. EXTREMITIES: Trace lower extremity edema. LABORATORY DATA: White blood cell count 3.2, hemoglobin 8.3, platelets 46. INR yesterday was 2.4, creatinine 1.33. Blood sugars are running in the 400 range. Bilirubin 1.8, AST 58, ALT 30, alkalin e phosphatase 135, albumin 2.0. Alpha fetoprotein was 15.4. IMPRESSION: 1. Hepatic encephalopathy, slowly improving now. She has had watery diarrhea and we will continue to back off the lactulose dose. 2. Cirrhosis secondary to fatty liver disease. 3. Mild ascites with history of SBP in the past. She does not have significant ascites now. 4. Stable anemia. 5. Urinary tract infection versus E. coli contaminant. This could explain the hepatic encephalopat hy. She has been treated with antibiotics and Dr. Tim was evaluated and does not recommend contin ued antibiotics at this point. RECOMMENDATIONS: 1. Lactulose. We will reduce the dose further today. 2. Rifaximin. She might not be able to continue to get this as an outpatient due to lack of insura nce. 3. Cirrhosis is decompensated with worsening INR, elevated creatinine and elevated bilirubin. The encephalopathy and history of SBP are negative prognostic signs. Again, with the lack of insurance, she is not a candidate for transplant evaluation. We will continue to give supportive care.
[2017-01-23] MEDS: HumaLOG 300 UNITS/3 ML VIAL SC PRN ×4 (00:01→21:50)
[2017-01-23] MEDS: Sodium Bicarbonate 50 MEQ in Sodium Chloride 0.45% 1,000 ML IV SCH ×2 (05:03→08:16)
[2017-01-23] MEDS: NPH, Human Insulin Isophane 300 UNIT/3 ML VIAL SC SCH ×2 (08:14→21:50)
[2017-01-23] MEDS: Rifaximin 550 MG TAB PO SCH ×2 (08:16→21:51)
[2017-01-23] MEDS: Pantoprazole 40 MG VIAL IVP SCH (08:17)
[2017-01-23 08:57] LABS: Anion Gap 10 mmol/L (10-20); BUN (Urea Nitrogen) 26 mg/dL (9.8-20.1); BUN/Creatinine Ratio 20.97; Calc. Creatinine Clearance 67 mL/min (70-130); Calcium 8.1 mg/dL (7.8-10.44); Carbon Dioxide 21 mmol/L (22-29); Chloride 113 mmol/L (98-107); Estimated GFR-MDRD 45; Phosphorus 2.8 mg/dL (2.3-4.7)
--- NOTE | 2017-01-23 09:47 | PDOC.PN ---
- Subjective Encounter Start Date: 01/23/17 Encounter Start Time: 09:46 Patient seen and examined. No new complaints. No overnight events. Mentation better. Feels gen weak. - Objective Resuscitation Status: Resuscitation Status FULL:Full Resuscitation MAR Reviewed: Yes Vital Signs & Weight: Vital Signs (12 hours) Temp Pulse Resp BP Pulse Ox 01/23/17 07:34 97.9 F 81 16 114/64 100 01/23/17 04:00 98.6 F 87 20 117/66 96 01/22/17 23:45 98.4 F 91 20 98/60 96 Weight Weight 183 lb 8 oz I&O: 01/22/17 01/23/17 01/24/17 06:59 06:59 06:59 Intake Total 1180 900 Output Total 1500 1150 Balance -320 -250 Result Diagrams: 01/22/17 05:56 01/23/17 08:03 Additional Labs: Accuchecks 01/23/17 01/23/17 01/22/17 07:35 04:13 23:52 POC Glucose 198 H 197 H 299 H 01/22/17 01/22/17 16:18 11:04 POC Glucose 483 H 422 H EKG Reviewed by me: Yes (Tele SR) Phys Exam - Physical Examination Constitutional: NAD Respiratory: no wheezing, no rhonchi Cardiovascular: RRR, no rub Gastrointestinal: soft, non-tender, positive bowel sounds Musculoskeletal: no edema Neurological: non-focal, moves all 4 limbs Dx/Plan (1) Toxic metabolic encephalopathy Code(s): G92 - TOXIC ENCEPHALOPATHY Status: Acute Comment: due to Hepatic encephalopathy. (2) Lactic acidosis Code(s): E87.2 - ACIDOSIS Status: Acute Comment: improving (3) UTI (urinary tract infection) Status: Suspected Comment: ESBL - Atbx dced per ID. Probably colonization. (4) DM type 2 (diabetes mellitus, type 2) Status: Chronic Qualifiers: Comment: on sliding scale (5) Liver cirrhosis secondary to nonalcoholic steatohepatitis (ORELLANA) Code(s): K75.81 - NONALCOHOLIC STEATOHEPATITIS (ORELLANA); K74.60 - UNSPECIFIED CIRRHOSIS OF LIVER Status: Chronic - Plan cont current plan of care, PT/OT, DVT proph w/SCDs * cont current dose of NPH and IVF * Change IVF to 1/2 NS with bicarb * Increase NPH * Cont Lactulose/Rifaximin * AM labs * GI following * ID input appreciated * Atbx dced * DC Isolation Review of Systems - Review of Systems Constitutional: negative: Fever, Chills, Sweats, Weakness, Malaise, Other Respiratory: negative: Cough, Dry, Shortness of Breath, Hemoptysis, SOB with Excertion, Pleuritic Pain, Sputum, Wheezing Cardiovascular: negative: Chest Pain, Palpitations, Orthopnea, Paroxysmal Noc. Dyspnea, Edema, Light Headedness, Other Gastrointestinal: Diarrhea. negative: Nausea, Vomiting, Abdominal Pain, Constipation, Melena, Hematochezia, Other - Medications/Allergies Allergies/Adverse Reactions: Allergies Allergy/AdvReac Type Severity Reaction Status Date / Time No Known Drug Allergies Allergy Verified 01/19/17 15:25 Medications: Current Medications Calcium Carbonate (Tums) 1,000 mg PO Q4H PRN PRN Reason: Heartburn or Indigestion Dextrose/Water (Dextrose 50%) 25 gm SLOW IVP PRN PRN PRN Reason: Hypoglycemia Glucagon (Glucagon) 1 mg IM PRN PRN PRN Reason: Hypoglycemia Dextrose/Water (D5w) 1,000 mls @ 0 mls/hr IV .Q0M PRN; As Directed PRN Reason: Hypoglycemia Sodium Bicarbonate 50 meq/ (Sodium Chloride) 1,050 mls @ 50 mls/hr IV .Q21H [facility] Last Admin: 01/23/17 08:16 Dose: 1,050 mls Insulin Human Lispro (Humalog) 0 units SC .BEDTIME SLIDING SC PRN PRN Reason: Bedtime Correctional Scale Last Admin: 01/22/17 00:44 Dose: 5 unit Insulin Human Lispro (Humalog) 0 units SC .MILD SLIDING SCALE PRN PRN Reason: Mild Correctional Scale Last Admin: 01/23/17 00:01 Dose: 4 unit Insulin Human NPH (Humulin N) 10 unit SC BID [facility] Last Admin: 01/23/17 08:14 Dose: 10 unit Lactulose (Lactulose) 30 gm PO BID [facility] Last Admin: 01/23/17 08:17 Dose: 30 gm Miscellaneous Medication (Pharmacy To Dose) 1 each IVPB ASDIR [facility] Ondansetron HCl (Zofran) 4 mg IVP Q6H PRN PRN Reason: Nausea/Vomiting Ondansetron HCl (Zofran Odt) 4 mg PO Q6H PRN PRN Reason: Nausea/Vomiting Pantoprazole Sodium (Protonix) 40 mg PO DAILY [facility] Rifaximin (Xifaxan) 550 mg PO BID [facility] Last Admin: 01/23/17 08:16 Dose: 550 mg Sodium Chloride (Flush - Normal Saline) 10 ml IVF Q12HR [facility] Last Admin: 01/23/17 08:16 Dose: 10 ml Sodium Chloride (Flush - Normal Saline) 10 ml IVF PRN PRN PRN Reason: Saline Flush Last Admin: 01/23/17 08:16 Dose: 10 ml
--- NOTE | 2017-01-23 14:29 | PRG ---
DATE OF SERVICE: 01/23/2017 SUBJECTIVE: Ms. Rosas is much more alert and interactive today. She still is slow to respond. She ate a normal breakfast this morning. Her family reports she is still a little slower than usmercedez donnelly, but closer to her baseline. She is still having liquidy stools from the rectal tube. OBJECTIVE: VITAL SIGNS: Temperature 97.9, pulse 81, blood pressure 114/64. GENERAL: She is in no acute distress. LUNGS: Clear to auscultation bilaterally. HEART: Regular rate and rhythm. ABDOMEN: Soft and nontender. Bowel sounds are present. EXTREMITIES: Trace lower extremity edema. LABORATORY DATA: Creatinine is 1.24. Albumin 2.0. IMPRESSION: 1. Hepatic encephalopathy continues to slowly improve. She has had watery diarrhea with the lactul ose and we have reduced the dose. She is currently on a lower dose and she normally is at home. 2. Cirrhosis secondary to fatty liver disease. She has progressively having worsening decompensati on. Her INR is elevated at 2.4, bilirubin was 1.8. Her creatinine is somewhat improved today. 3. Mild ascites with history of spontaneous bacterial peritonitis in the past. 4. Acute renal insufficiency. Her creatinine has improved from 1.71 on admission and 1.24 today. RECOMMENDATIONS: 1. We will continue with the lower dose lactulose and remove the rectal tube. 2. Rifaximin. 3. She is working with physical therapy for ambulation.
[2017-01-24] MEDS: HumaLOG 300 UNITS/3 ML VIAL SC PRN ×5 (02:16→20:24)
[2017-01-24] MEDS: Sodium Bicarbonate 50 MEQ in Sodium Chloride 0.45% 1,000 ML IV SCH (05:34)
[2017-01-24 06:48] LABS: Anion Gap 9 mmol/L (10-20); BUN (Urea Nitrogen) 27 mg/dL (9.8-20.1); BUN/Creatinine Ratio 24.77; Calc. Creatinine Clearance 77 mL/min (70-130); Calcium 8.1 mg/dL (7.8-10.44); Carbon Dioxide 22 mmol/L (22-29); Chloride 111 mmol/L (98-107); Estimated GFR-MDRD 52; Magnesium 1.9 mg/dL (1.6-2.6); Phosphorus 2.1 mg/dL (2.3-4.7)
[2017-01-24 07:11] LABS: #Eosinphils 0.1 thou/uL (0.0-0.7); #Lymphocytes 0.4 thou/uL (1.20-3.40); #Monocytes 0.2 thou/uL (0.11-0.59); #Neutrophils 1.6 thou/uL (1.40-6.50); %Basophils 1.4 % (0.0-1.0); %Eosinophils 3.7 % (0.0-10.0); %Lymphocytes 18.6 % (21.0-51.0); %Monocytes 8.2 % (0.0-10.0); Hematocrit 23.9 % (36.0-47.0); Mean Platelet Volume 9.6 fL (7.4-10.4); Red Blood Cell (RBC) Count 2.18 mill/uL (4.20-5.40); White Blood Cell (WBC) Count 2.3 thou/uL (4.8-10.8)
[2017-01-24] MEDS: NPH, Human Insulin Isophane 300 UNIT/3 ML VIAL SC SCH ×2 (08:48→20:25)
[2017-01-24] MEDS: Rifaximin 550 MG TAB PO SCH ×2 (08:49→20:25)
--- NOTE | 2017-01-24 11:56 | PDOC.PN ---
- Subjective Encounter Start Date: 01/24/17 Encounter Start Time: 11:20 Subjective: Confortable, resposive. -: In no distress. - Objective Resuscitation Status: Resuscitation Status FULL:Full Resuscitation Vital Signs & Weight: Vital Signs (12 hours) Temp Pulse Resp BP BP Pulse Ox 01/24/17 07:48 97.7 F 86 16 100 01/24/17 07:30 98.4 F 90 20 95/52 L 99 01/24/17 04:00 97.7 F 86 16 107/58 L 100 01/23/17 23:59 98.3 F 93 20 106/59 L 99 Weight Admit Weight 174 lb 4 oz Weight 183 lb 8 oz I&O: 01/23/17 01/24/17 01/25/17 06:59 06:59 06:59 Intake Total 900 2578 600 Output Total 1150 600 Balance -250 1978 600 Result Diagrams: 01/24/17 06:24 01/24/17 06:24 Additional Labs: Accuchecks 01/24/17 01/24/17 01/23/17 05:35 02:03 20:47 POC Glucose 188 H 250 H 320 H 01/23/17 16:57 POC Glucose 265 H Phys Exam - Physical Examination Constitutional: NAD HEENT: PERRLA Neck: no JVD Respiratory: clear to auscultation bilateral Cardiovascular: RRR Gastrointestinal: soft, non-tender, no distention Musculoskeletal: no edema (Alert.) Dx/Plan (1) Encephalopathy acute Code(s): G93.40 - ENCEPHALOPATHY, UNSPECIFIED Status: Acute Plan: continue lactulose. Comment: resolving. (2) Hyperglycemia due to type 2 diabetes mellitus Code(s): E11.65 - TYPE 2 DIABETES MELLITUS WITH HYPERGLYCEMIA Status: Acute Comment: improving.. (3) Hyponatremia Code(s): E87.1 - HYPO-OSMOLALITY AND HYPONATREMIA Status: Acute Comment: resolved.. (4) Lactic acidosis Code(s): E87.2 - ACIDOSIS Status: Acute Comment: due to liver disease. resolving. (5) DM type 2 (diabetes mellitus, type 2) Status: Chronic Qualifiers: Comment: on sliding scale (6) HTN (hypertension) Code(s): I10 - ESSENTIAL (PRIMARY) HYPERTENSION Status: Chronic (7) Liver cirrhosis secondary to nonalcoholic steatohepatitis (ORELLANA) Code(s): K75.81 - NONALCOHOLIC STEATOHEPATITIS (ORELLANA); K74.60 - UNSPECIFIED CIRRHOSIS OF LIVER Status: Chronic (8) Hypokalemia Code(s): E87.6 - HYPOKALEMIA Status: Acute Comment: supplemented. - Plan -: Continue current therapy. -: f/u chemistry. * .
--- NOTE | 2017-01-24 17:05 | PRG ---
DATE OF SERVICE: 01/24/2017 SUBJECTIVE: Ms. Rosas had the rectal tube removed yesterday. She had one bowel movement last n ight. She has had no bowel movement so far today at 3:30 p.m. She has been more alert, closer to h er baseline mental status. Her family mostly feeds her. OBJECTIVE: VITAL SIGNS: Temperature 98.1, pulse 91, and blood pressure 92/54. GENERAL: She is in no acute distress. She is awake and alert. LUNGS: Clear to auscultation bilaterally. HEART: Regular rate and rhythm. ABDOMEN: Obese, but nondistended. Bowel sounds are present. EXTREMITIES: No lower extremity edema. LABORATORY DATA: White blood cell count 2.3, hemoglobin 7.9, and platelets 41,000. INR was from was 2.4. Creatinine 1.09, albumin 1.9. IMPRESSION: 1. Hepatic encephalopathy, slowly improving. She did have liquidy stool through the rectal tube on the higher dose lactulose. Now, she has had no bowel movement all day and will need to increase th e lactulose joint runner to her baseline daily dose which is 45 mL 3-4 times per day. 2. Decompensated cirrhosis. 3. Acute renal insufficiency is improving. RECOMMENDATIONS: 1. Increase the lactulose again. 2. Continue rifaximin. 3. Encourage ambulation.
[2017-01-25] MEDS: Sodium Bicarbonate 50 MEQ in Sodium Chloride 0.45% 1,000 ML IV SCH (02:37)
[2017-01-25] MEDS: HumaLOG 300 UNITS/3 ML VIAL SC PRN ×3 (06:01→16:41)
[2017-01-25] MEDS: Rifaximin 550 MG TAB PO SCH ×2 (07:30→21:15)
[2017-01-25] MEDS: NPH, Human Insulin Isophane 300 UNIT/3 ML VIAL SC SCH ×2 (07:31→21:15)
--- NOTE | 2017-01-25 11:03 | PDOC.PN ---
- Subjective Encounter Start Date: 01/25/17 Encounter Start Time: 11:02 Subjective: more alert, but still confused - Objective Resuscitation Status: Resuscitation Status FULL:Full Resuscitation MAR Reviewed: Yes Vital Signs & Weight: Vital Signs (12 hours) Temp Pulse Resp BP BP Pulse Ox 01/25/17 07:22 98.8 F 85 14 98 01/25/17 07:20 98.8 F 85 14 105/55 L 98 01/25/17 04:01 98.4 F 102 H 18 109/66 98 01/24/17 23:59 98.2 F 92 14 108/61 97 Weight Admit Weight 174 lb 4 oz Weight 187 lb 14.4 oz I&O: 01/24/17 01/25/17 01/26/17 06:59 06:59 06:59 Intake Total 2578 2280 Output Total 600 Balance 1978 0 Result Diagrams: 01/24/17 06:24 01/24/17 06:24 Additional Labs: Accuchecks 01/25/17 01/24/17 01/24/17 05:45 20:10 16:49 POC Glucose 206 H 235 H 200 H 01/24/17 01/22/17 11:49 20:01 POC Glucose 238 H 451 H Phys Exam - Physical Examination Constitutional: NAD Neck: no JVD Respiratory: clear to auscultation bilateral Cardiovascular: RRR, no significant murmur Gastrointestinal: soft, positive bowel sounds Musculoskeletal: edema present Dx/Plan (1) Toxic metabolic encephalopathy Code(s): G92 - TOXIC ENCEPHALOPATHY Status: Acute Comment: due to Hepatic encephalopathy. (2) Hyperglycemia due to type 2 diabetes mellitus Code(s): E11.65 - TYPE 2 DIABETES MELLITUS WITH HYPERGLYCEMIA Status: Chronic Comment: improving.. (3) Lactic acidosis Code(s): E87.2 - ACIDOSIS Status: Resolved Comment: due to liver disease. resolving. (4) HTN (hypertension) Code(s): I10 - ESSENTIAL (PRIMARY) HYPERTENSION Status: Chronic (5) Liver cirrhosis secondary to nonalcoholic steatohepatitis (ORELLANA) Code(s): K75.81 - NONALCOHOLIC STEATOHEPATITIS (ORELLANA); K74.60 - UNSPECIFIED CIRRHOSIS OF LIVER Status: Chronic (6) Macrocytic anemia Code(s): D53.9 - NUTRITIONAL ANEMIA, UNSPECIFIED Status: Chronic (7) Thrombocytopenia Code(s): D69.6 - THROMBOCYTOPENIA, UNSPECIFIED Status: Chronic - Plan cont osmotic laxative, move to medical -: cont accu/ss, long acting insulin * .
[2017-01-25] MEDS ORDERED: Phytonadione 10 MG/ML AMP SC SCH (11:30)
--- NOTE | 2017-01-25 11:55 | PRG ---
DATE OF SERVICE: 01/25/2017 SUBJECTIVE: Ms. Rosas had 1 large bowel movement with loss of continence today. She had 1 renu l movement yesterday. She has had no nausea or vomiting. OBJECTIVE: VITAL SIGNS: Temperature 98.8, pulse 85, blood pressure 105/55. GENERAL: She is oriented to her name, but not to the year and not to the place. When asked where s he is, she says \\\\"I don't know\\\\". Her and son have been at the bedside to help with inter pretation and her care. They have to feed her. LUNGS: Her lungs are clear to auscultation bilaterally. HEART: Regular rate and rhythm. ABDOMEN: Obese, soft and nontender. EXTREMITIES: No lower extremity edema. IMPRESSION: 1. Hepatic encephalopathy. She remains confused, but better than at the time of admission. The la ctulose is being titrated. She had a large bowel movement with loss of continence today, but the fr equency of stool has been not at goal. I would not increase the dose of her lactulose based on the large liquidy stool with loss of continence, but due to the infrequency I would not reduce the dose at this point. 2. Decompensated cirrhosis. Her overall prognosis with this is not good. Her INR was 2.4, albumin is 1.9. Her renal function remains okay. She needs a liver transplant; however, this is not an op tion with the lack of funding. Palliative care consultation would be appropriate. I expect that barbara damon will spend more time in the hospital over the coming months than at home. 3. Acute renal failure, improving. 4. Mild ascites, inadequate amount to tap by the previous imaging. She does not seem to have had a n increase in her abdominal distention or lower extremity edema. RECOMMENDATIONS: 1. We will give a dose of vitamin K. 2. Recheck labs in the morning for baseline of liver function analysis. 3. Continue rifaximin; however, unfortunately this will not be able to be continued as an outpatien t without funding. 4. Continue lactulose 45 mL 3 times a day. 5. Currently her diuretics are held due to acute renal failure which has since improved. 6. Continue to work with physical therapy as she has become very weak and only gets out of bed a minimal amount.
[2017-01-25] MEDS ORDERED: Nystatin Powder 15 GM BOT TOP PRN (14:48)
[2017-01-26 05:14] LABS: PTT 41.8 SEC (22.9-36.1); Prothrombin Time 26.6 SEC (12.0-14.7)
[2017-01-26 05:21] LABS: #Eosinphils 0.1 thou/uL (0.0-0.7); #Lymphocytes 0.4 thou/uL (1.20-3.40); #Monocytes 0.2 thou/uL (0.11-0.59); #Neutrophils 1.5 thou/uL (1.40-6.50); %Basophils 0.7 % (0.0-1.0); %Eosinophils 2.9 % (0.0-10.0); %Lymphocytes 16.7 % (21.0-51.0); %Monocytes 10.2 % (0.0-10.0); Hematocrit 24.7 % (36.0-47.0); Mean Platelet Volume 9.7 fL (7.4-10.4); Red Blood Cell (RBC) Count 2.26 mill/uL (4.20-5.40); White Blood Cell (WBC) Count 2.2 thou/uL (4.8-10.8)
[2017-01-26 05:32] LABS: ALT (SGPT) 37 U/L (8-55); AST (SGOT) 104 U/L (5-34); Alkaline Phosphatase 157 U/L (40-150); Anion Gap 9 mmol/L (10-20); BUN (Urea Nitrogen) 23 mg/dL (9.8-20.1); Bilirubin, Total 2.4 mg/dL (0.2-1.2); Calc. Creatinine Clearance 91 mL/min (70-130); Calcium 8.1 mg/dL (7.8-10.44); Carbon Dioxide 24 mmol/L (22-29); Chloride 105 mmol/L (98-107); Estimated GFR-MDRD 62; Globulin 4.4 g/dL (2.4-3.5); Protein, Total 6.2 g/dL (6.0-8.3)
[2017-01-26] MEDS: HumaLOG 300 UNITS/3 ML VIAL SC PRN ×3 (05:52→18:25)
[2017-01-26] MEDS: Sodium Bicarbonate 50 MEQ in Sodium Chloride 0.45% 1,000 ML IV SCH (06:10)
[2017-01-26] MEDS: Rifaximin 550 MG TAB PO SCH ×2 (08:37→21:06)
[2017-01-26] MEDS: NPH, Human Insulin Isophane 300 UNIT/3 ML VIAL SC SCH ×2 (08:38→21:06)
--- NOTE | 2017-01-26 13:12 | PDOC.PN ---
- Subjective Encounter Start Date: 01/26/17 Encounter Start Time: 08:50 Subjective: awake, not oriented -: and son at bedside - Objective Resuscitation Status: Resuscitation Status FULL:Full Resuscitation MAR Reviewed: Yes Vital Signs & Weight: Vital Signs (12 hours) Temp Pulse Resp BP Pulse Ox 01/26/17 11:16 98.4 F 78 18 130/83 100 01/26/17 08:00 98.1 F 85 18 100 01/26/17 07:18 98.1 F 85 18 116/76 100 Weight Admit Weight 174 lb 4 oz Weight 187 lb 14.4 oz I&O: 01/25/17 01/26/17 01/27/17 06:59 06:59 06:59 Intake Total 2280 1170 Balance 2280 1170 Result Diagrams: 01/26/17 04:37 01/26/17 04:37 Additional Labs: Accuchecks 01/26/17 01/26/17 01/25/17 11:20 04:07 20:22 POC Glucose 240 H 216 H 217 H 01/25/17 16:03 POC Glucose 229 H Phys Exam - Physical Examination HEENT: PERRLA, moist MMs Neck: no JVD, supple Respiratory: no wheezing, no rales Cardiovascular: RRR, no significant murmur Gastrointestinal: soft, positive bowel sounds distention+ Musculoskeletal: pulses present, edema present Neurological: non-focal, moves all 4 limbs Dx/Plan (1) Hepatic encephalopathy Code(s): K72.90 - HEPATIC FAILURE, UNSPECIFIED WITHOUT COMA Status: Acute Comment: (2) DM type 2 (diabetes mellitus, type 2) Status: Chronic Qualifiers: Diabetes mellitus complication status: with unspecified complications Diabetes mellitus group home insulin use: without terminal carman use Qualified Code( s): E11.8 - Type 2 diabetes mellitus with unspecified complications Comment: on sliding scale (3) HTN (hypertension) Code(s): I10 - ESSENTIAL (PRIMARY) HYPERTENSION Status: Chronic Qualifiers: Hypertension type: essential hypertension Qualified Code(s): I10 - Essential (primary) hypertension (4) Liver cirrhosis secondary to nonalcoholic steatohepatitis (ORELLANA) Code(s): K75.81 - NONALCOHOLIC STEATOHEPATITIS (ORELLANA); K74.60 - UNSPECIFIED CIRRHOSIS OF LIVER Status: Chronic (5) Macrocytic anemia Code(s): D53.9 - NUTRITIONAL ANEMIA, UNSPECIFIED Status: Chronic (6) Physical deconditioning Code(s): R53.81 - OTHER MALAISE Status: Chronic (7) Thrombocytopenia Code(s): D69.6 - THROMBOCYTOPENIA, UNSPECIFIED Status: Chronic - Plan for abd paracentesis today -: prognosis guarded -: pt has gained nearly 40lbs in the last 1 yr due to edema -: low alb with coagulopathy and end stage liver disease -: on lactulose, had 2 bm's from last night * . Review of Systems - Medications/Allergies Allergies/Adverse Reactions: Allergies Allergy/AdvReac Type Severity Reaction Status Date / Time No Known Drug Allergies Allergy Verified 01/19/17 15:25 Medications: Current Medications Calcium Carbonate (Tums) 1,000 mg PO Q4H PRN PRN Reason: Heartburn or Indigestion Dextrose/Water (Dextrose 50%) 25 gm SLOW IVP PRN PRN PRN Reason: Hypoglycemia Glucagon (Glucagon) 1 mg IM PRN PRN PRN Reason: Hypoglycemia Dextrose/Water (D5w) 1,000 mls @ 0 mls/hr IV .Q0M PRN; As Directed PRN Reason: Hypoglycemia Insulin Human Lispro (Humalog) 0 units SC .BEDTIME SLIDING SC PRN PRN Reason: Bedtime Correctional Scale Last Admin: 01/26/17 05:52 Dose: 2 unit Insulin Human Lispro (Humalog) 0 units SC .MILD SLIDING SCALE PRN PRN Reason: Mild Correctional Scale Last Admin: 01/26/17 12:33 Dose: 3 unit Insulin Human NPH (Humulin N) 10 unit SC BID [facility] Last Admin: 01/26/17 08:38 Dose: 10 unit Lactulose (Lactulose) 30 gm PO TID [facility] Last Admin: 01/26/17 08:37 Dose: 30 gm Miscellaneous Medication (Pharmacy To Dose) 1 each IVPB ASDIR [facility] Nystatin (Mycostatin Powder) 0 gm TOP PRN PRN PRN Reason: APPLY TO AFFECTED AREA Ondansetron HCl (Zofran) 4 mg IVP Q6H PRN PRN Reason: Nausea/Vomiting Ondansetron HCl (Zofran Odt) 4 mg PO Q6H PRN PRN Reason: Nausea/Vomiting Pantoprazole Sodium (Protonix) 40 mg PO DAILY [facility] Last Admin: 01/26/17 08:37 Dose: 40 mg Rifaximin (Xifaxan) 550 mg PO BID [facility] Last Admin: 01/26/17 08:37 Dose: 550 mg Sodium Chloride (Flush - Normal Saline) 10 ml IVF Q12HR [facility] Last Admin: 01/26/17 08:39 Dose: Not Given Sodium Chloride (Flush - Normal Saline) 10 ml IVF PRN PRN PRN Reason: Saline Flush Last Admin: 01/23/17 08:16 Dose: 10 ml
--- NOTE | 2017-01-26 16:04 | ULT ---
LIMITED ABDOMINAL SONOGRAM: 01/26/17 HISTORY: Cirrhosis, end-stage liver disease. FINDINGS/IMPRESSION: Sonographic survey of the abdomen shows a large amount of fluid centered at the right side. Blood clotting functions will be addressed, and patient will be scheduled for therapeutic paracentes is. POS: [facility]
[2017-01-27] MEDS: HumaLOG 300 UNITS/3 ML VIAL SC PRN ×3 (05:47→17:13)
--- NOTE | 2017-01-27 05:49 | PRG ---
DATE OF SERVICE: 01/26/2017 SUBJECTIVE: She is more alert today. She is tolerating her diet. She has had 1 bowel movement tod ay. PHYSICAL EXAMINATION: VITAL SIGNS: Temperature is 98.6, pulse 88, blood pressure 116/72. GENERAL: She is in no acute distress. LUNGS: Clear to auscultation bilaterally. HEART: Regular rate and rhythm. ABDOMEN: Soft, it is obese and also distended with ascites. Her bowel sounds are present. EXTREMITIES: No lower extremity edema. IMPRESSION: 1. Hepatic encephalopathy. Her mental status appears to be near baseline based on her family's rep ort. 2. Ascites. Ultrasound did show a pocket of fluid in the right abdomen; however, due to her thromb ocytopenia and elevated INR, and Radiology is avoiding paracentesis at this point. She would requir e FFP and platelet transfusion. I am not sure that adding all the extra blood products just for the sake of paracentesis at this point will be worth it. Her diuretics have been held due to acute sukhwinder al insufficiency. Her creatinine has returned down to 0.94. 3. We could restart her diuretics tomorrow. 4. Decompensated cirrhosis. RECOMMENDATIONS: 1. She did receive a dose of vitamin K yesterday. 2. We will start furosemide 20 mg and spironolactone 50 mg tomorrow. 3. Continue lactulose and Xifaxan. 4. Continue to work with physical therapy.
[2017-01-27] MEDS: Spironolactone 25 MG TAB PO SCH (08:47)
[2017-01-27] MEDS: Furosemide 20 MG TAB PO SCH (08:47)
[2017-01-27] MEDS: Rifaximin 550 MG TAB PO SCH ×2 (08:47→20:27)
[2017-01-27] MEDS: NPH, Human Insulin Isophane 300 UNIT/3 ML VIAL SC SCH ×2 (08:53→20:27)
--- NOTE | 2017-01-27 15:00 | PDOC.PN ---
- Subjective Encounter Start Date: 01/27/17 Encounter Start Time: 08:30 Subjective: more awake this morning, no sob or abd pain - Objective Resuscitation Status: Resuscitation Status FULL:Full Resuscitation MAR Reviewed: Yes Vital Signs & Weight: Vital Signs (12 hours) Temp Pulse Resp BP Pulse Ox 01/27/17 08:01 98.1 F 82 16 123/82 99 01/27/17 08:00 98.1 F 82 16 99 Weight Admit Weight 174 lb 4 oz Weight 187 lb 14.4 oz I&O: 01/26/17 01/27/17 01/28/17 06:59 06:59 06:59 Intake Total 1170 820 Balance 1170 820 Result Diagrams: 01/26/17 04:37 01/26/17 04:37 Additional Labs: Accuchecks 01/27/17 01/27/17 01/26/17 11:48 04:57 21:06 POC Glucose 296 H 245 H 225 H 01/26/17 16:22 POC Glucose 239 H Phys Exam - Physical Examination HEENT: PERRLA, moist MMs Neck: no JVD, supple Respiratory: no wheezing, no rales Cardiovascular: RRR, no significant murmur Gastrointestinal: soft, non-tender, positive bowel sounds distention+ Musculoskeletal: pulses present, edema present Neurological: non-focal, moves all 4 limbs Dx/Plan (1) Hepatic encephalopathy Code(s): K72.90 - HEPATIC FAILURE, UNSPECIFIED WITHOUT COMA Status: Acute Comment: (2) DM type 2 (diabetes mellitus, type 2) Status: Chronic Qualifiers: Diabetes mellitus complication status: with unspecified complications Diabetes mellitus terminal press operator insulin use: without terminal press operator use Qualified Code( s): E11.8 - Type 2 diabetes mellitus with unspecified complications Comment: on sliding scale (3) HTN (hypertension) Code(s): I10 - ESSENTIAL (PRIMARY) HYPERTENSION Status: Chronic Qualifiers: Hypertension type: essential hypertension Qualified Code(s): I10 - Essential (primary) hypertension (4) Liver cirrhosis secondary to nonalcoholic steatohepatitis (ORELLANA) Code(s): K75.81 - NONALCOHOLIC STEATOHEPATITIS (ORELLANA); K74.60 - UNSPECIFIED CIRRHOSIS OF LIVER Status: Chronic (5) Macrocytic anemia Code(s): D53.9 - NUTRITIONAL ANEMIA, UNSPECIFIED Status: Chronic (6) Physical deconditioning Code(s): R53.81 - OTHER MALAISE Status: Chronic (7) Thrombocytopenia Code(s): D69.6 - THROMBOCYTOPENIA, UNSPECIFIED Status: Chronic - Plan encephalopathy is slowly resolving -: encourage po intake, dc plan when she is able to amb a bit -: PT to mobilize pt as tolerated in room -: no paracentesis due to coagulopathy -: is on lasix and spironolactone from today * . Review of Systems - Medications/Allergies Allergies/Adverse Reactions: Allergies Allergy/AdvReac Type Severity Reaction Status Date / Time No Known Drug Allergies Allergy Verified 01/19/17 15:25 Medications: Current Medications Calcium Carbonate (Tums) 1,000 mg PO Q4H PRN PRN Reason: Heartburn or Indigestion Dextrose/Water (Dextrose 50%) 25 gm SLOW IVP PRN PRN PRN Reason: Hypoglycemia Furosemide (Lasix) 20 mg PO DAILY [facility] Last Admin: 01/27/17 08:47 Dose: 20 mg Glucagon (Glucagon) 1 mg IM PRN PRN PRN Reason: Hypoglycemia Dextrose/Water (D5w) 1,000 mls @ 0 mls/hr IV .Q0M PRN; As Directed PRN Reason: Hypoglycemia Insulin Human Lispro (Humalog) 0 units SC .BEDTIME SLIDING SC PRN PRN Reason: Bedtime Correctional Scale Last Admin: 01/26/17 05:52 Dose: 2 unit Insulin Human Lispro (Humalog) 0 units SC .MILD SLIDING SCALE PRN PRN Reason: Mild Correctional Scale Last Admin: 01/27/17 12:17 Dose: 4 unit Insulin Human NPH (Humulin N) 10 unit SC BID [facility] Last Admin: 01/27/17 08:53 Dose: 10 unit Lactulose (Lactulose) 30 gm PO TID [facility] Last Admin: 01/27/17 14:13 Dose: 30 gm Miscellaneous Medication (Pharmacy To Dose) 1 each IVPB ASDIR [facility] Nystatin (Mycostatin Powder) 0 gm TOP PRN PRN PRN Reason: APPLY TO AFFECTED AREA Ondansetron HCl (Zofran) 4 mg IVP Q6H PRN PRN Reason: Nausea/Vomiting Ondansetron HCl (Zofran Odt) 4 mg PO Q6H PRN PRN Reason: Nausea/Vomiting Pantoprazole Sodium (Protonix) 40 mg PO DAILY [facility] Last Admin: 01/27/17 08:47 Dose: 40 mg Rifaximin (Xifaxan) 550 mg PO BID [facility] Last Admin: 01/27/17 08:47 Dose: 550 mg Sodium Chloride (Flush - Normal Saline) 10 ml IVF Q12HR [facility] Last Admin: 01/27/17 08:48 Dose: 10 ml Sodium Chloride (Flush - Normal Saline) 10 ml IVF PRN PRN PRN Reason: Saline Flush Last Admin: 01/23/17 08:16 Dose: 10 ml Spironolactone (Aldactone) 50 mg PO DAILY [facility] Last Admin: 01/27/17 08:47 Dose: 50 mg
--- NOTE | 2017-01-28 00:16 | PRG ---
DATE OF SERVICE: 01/27/2017 SUBJECTIVE: Ms. Rosas remains confused. She had two loose bowel movements today. She continue s to have no abdominal pain. She has been weak and doing very little with physical therapy. OBJECTIVE: VITAL SIGNS: Temperature 98.1, pulse 100, blood pressure 114/82. GENERAL: She is in no acute distress. She is oriented to her name, but not the year and she is int ermittently oriented to the location. LUNGS: Clear to auscultation bilaterally. HEART: Regular rate and rhythm. ABDOMEN: Obese and distended with anasarca and ascites. EXTREMITIES: Have 1+ pitting lower extremity edema. IMPRESSION: 1. Hepatic encephalopathy. She has had little improvement over the last several days. This might be her baseline mental status. 2. Decompensated cirrhosis with INR of 2.4 and albumin of 1.8, elevated bilirubin. 3. Acute renal failure has improved and she has been restarted on the spironolactone and Lasix. 4. Ascites. Ultrasound showed a pocket of fluid in the right abdomen. Radiology did not follow th rough with ultrasound guided paracentesis due to the coagulopathy and thrombocytopenia. While her a bdomen is distended with anasarca and obesity, she does not seem to have tense ascites. Still with her history of spontaneous bacterial peritonitis and failure to resolve her hepatic encephalopathy, it would be ideal to rule out spontaneous bacterial peritonitis. RECOMMENDATIONS: 1. Diagnostic paracentesis at the bedside. 2. Continue furosemide and spironolactone. 3. Continue lactulose and Xifaxan. 4. Physical therapy. 5. Consult palliative care as her overall prognosis is poor given the continuing encephalopathy and poor functional status and severely decompensated cirrhosis.
--- NOTE | 2017-01-28 01:50 | OP ---
DATE OF PROCEDURE: 01/27/2017 PROCEDURE: Diagnostic paracentesis. PREOPERATIVE DIAGNOSIS: Ascites. PROCEDURE IN DETAIL: Informed consent was obtained from the patient's family. The appropriate site in the right lower quadrant was sterilized with Betadine. A 22 gauge 1.5-inch needle was then used with a 20 mL syringe to attempt diagnostic paracentesis. The needle was placed through the abdomin al wall and suction was applied. The needle was hubbed and advanced with pressure. However, there is no return of any type of fluid. No blood return either. Only one pass was made given her coagul opathy. IMPRESSION: Dry tap. RECOMMENDATIONS: 1. She did receive 2 days of empiric ceftriaxone followed by 2 more days of meropenem. She really did not have significant change in her clinical status with the antibiotics. We will hold off furth er intervention regarding the ascites at this time and she is not tense and does not have any abdomi nal tenderness. 2. Consideration should be given for hospice care or palliative care. She has made little progress of the last several days regarding her hepatic encephalopathy and her liver is significantly decomp ensated without prospects for liver transplantation due to lack of funding.
[2017-01-28] MEDS: HumaLOG 300 UNITS/3 ML VIAL SC PRN ×4 (05:06→20:37)
[2017-01-28] MEDS: NPH, Human Insulin Isophane 300 UNIT/3 ML VIAL SC SCH ×2 (09:16→20:36)
[2017-01-28] MEDS: Spironolactone 25 MG TAB PO SCH (09:18)
[2017-01-28] MEDS: Rifaximin 550 MG TAB PO SCH ×2 (09:18→20:36)
[2017-01-28] MEDS: Furosemide 20 MG TAB PO SCH (09:19)
[2017-01-28 13:58] VITALS: BMI 35.4
--- NOTE | 2017-01-28 15:30 | PDOC.PN ---
- Subjective Encounter Start Date: 01/28/17 Encounter Start Time: 08:45 Subjective: is awake and responds to questions -: has amb 20ft with rw - Objective Resuscitation Status: Resuscitation Status FULL:Full Resuscitation MAR Reviewed: Yes Vital Signs & Weight: Vital Signs (12 hours) Temp Pulse Resp BP Pulse Ox 01/28/17 08:26 98.2 F 108 H 18 127/84 96 01/28/17 08:00 98.2 F 108 H 18 Weight Admit Weight 174 lb 4 oz Weight 187 lb 14.4 oz I&O: 01/27/17 01/28/17 01/29/17 06:59 06:59 06:59 Intake Total 820 480 Balance 820 480 Result Diagrams: 01/26/17 04:37 01/26/17 04:37 Additional Labs: Accuchecks 01/28/17 01/28/17 01/27/17 11:18 04:59 20:55 POC Glucose 425 H 404 H 377 H 01/27/17 16:40 POC Glucose 325 H Phys Exam - Physical Examination HEENT: PERRLA, moist MMs Neck: no JVD, supple Respiratory: no wheezing, no rales Cardiovascular: RRR, no significant murmur Gastrointestinal: soft, positive bowel sounds distention/anasarca++ Musculoskeletal: pulses present, edema present Neurological: non-focal, moves all 4 limbs Dx/Plan (1) Hepatic encephalopathy Code(s): K72.90 - HEPATIC FAILURE, UNSPECIFIED WITHOUT COMA Status: Resolved Comment: (2) DM type 2 (diabetes mellitus, type 2) Status: Chronic Qualifiers: Diabetes mellitus complication status: with unspecified complications Diabetes mellitus group home insulin use: without group home use Qualified Code( s): E11.8 - Type 2 diabetes mellitus with unspecified complications Comment: on sliding scale (3) HTN (hypertension) Code(s): I10 - ESSENTIAL (PRIMARY) HYPERTENSION Status: Chronic Qualifiers: Hypertension type: essential hypertension Qualified Code(s): I10 - Essential (primary) hypertension (4) Liver cirrhosis secondary to nonalcoholic steatohepatitis (ORELLANA) Code(s): K75.81 - NONALCOHOLIC STEATOHEPATITIS (ORELLANA); K74.60 - UNSPECIFIED CIRRHOSIS OF LIVER Status: Chronic (5) Macrocytic anemia Code(s): D53.9 - NUTRITIONAL ANEMIA, UNSPECIFIED Status: Chronic (6) Physical deconditioning Code(s): R53.81 - OTHER MALAISE Status: Chronic (7) Thrombocytopenia Code(s): D69.6 - THROMBOCYTOPENIA, UNSPECIFIED Status: Chronic - Plan her cognition has improved -: has amb 20ft with rw, increase nph to 20u bid -: d/w son and at bedside -: dc plan in am -: on lasix, lactulose and spironolactone * . Review of Systems - Medications/Allergies Allergies/Adverse Reactions: Allergies Allergy/AdvReac Type Severity Reaction Status Date / Time No Known Drug Allergies Allergy Verified 01/19/17 15:25 Medications: Current Medications Calcium Carbonate (Tums) 1,000 mg PO Q4H PRN PRN Reason: Heartburn or Indigestion Dextrose/Water (Dextrose 50%) 25 gm SLOW IVP PRN PRN PRN Reason: Hypoglycemia Furosemide (Lasix) 20 mg PO DAILY [facility] Last Admin: 01/28/17 09:19 Dose: 20 mg Glucagon (Glucagon) 1 mg IM PRN PRN PRN Reason: Hypoglycemia Dextrose/Water (D5w) 1,000 mls @ 0 mls/hr IV .Q0M PRN; As Directed PRN Reason: Hypoglycemia Insulin Human Lispro (Humalog) 0 units SC .BEDTIME SLIDING SC PRN PRN Reason: Bedtime Correctional Scale Last Admin: 01/26/17 05:52 Dose: 2 unit Insulin Human Lispro (Humalog) 0 units SC .MILD SLIDING SCALE PRN PRN Reason: Mild Correctional Scale Last Admin: 01/28/17 11:54 Dose: 6 unit Insulin Human NPH (Humulin N) 20 unit SC BID [facility] Last Admin: 01/28/17 09:16 Dose: 20 unit Lactulose (Lactulose) 30 gm PO TID [facility] Last Admin: 01/28/17 15:27 Dose: 30 gm Miscellaneous Medication (Pharmacy To Dose) 1 each IVPB ASDIR [facility] Nystatin (Mycostatin Powder) 0 gm TOP PRN PRN PRN Reason: APPLY TO AFFECTED AREA Ondansetron HCl (Zofran) 4 mg IVP Q6H PRN PRN Reason: Nausea/Vomiting Ondansetron HCl (Zofran Odt) 4 mg PO Q6H PRN PRN Reason: Nausea/Vomiting Pantoprazole Sodium (Protonix) 40 mg PO DAILY [facility] Last Admin: 01/28/17 09:25 Dose: 40 mg Rifaximin (Xifaxan) 550 mg PO BID [facility] Last Admin: 01/28/17 09:18 Dose: 550 mg Sodium Chloride (Flush - Normal Saline) 10 ml IVF Q12HR [facility] Last Admin: 01/28/17 09:25 Dose: 10 ml Sodium Chloride (Flush - Normal Saline) 10 ml IVF PRN PRN PRN Reason: Saline Flush Last Admin: 01/23/17 08:16 Dose: 10 ml Spironolactone (Aldactone) 50 mg PO DAILY [facility] Last Admin: 01/28/17 09:18 Dose: 50 mg
--- NOTE | 2017-01-28 18:53 | PRG ---
DATE OF SERVICE: 01/28/2017 SUBJECTIVE: Ms. Rosas is oriented to her name and she is able to state that she is in the hospi antony. She had no acute changes overnight. OBJECTIVE: VITAL SIGNS: Temperature 98.2, pulse 108, blood pressure 127/84. GENERAL: She is in no acute distress. LUNGS: Clear to auscultation bilaterally. HEART: Regular rate and rhythm. ABDOMEN: Soft, nontender, nondistended, bowel sounds are present. EXTREMITIES: Trace lower extremity edema. IMPRESSION: 1. Decompensated cirrhosis with overall poor prognosis and high likelihood of frequent hospitalizat ions over the following months. 2. Hepatic encephalopathy. She still has been very slow to improve. She is on lactulose and Xifax an, but only remains oriented to her name, but the most part no primary cause has been identified. 3. Mild ascites. RECOMMENDATIONS: 1. Continue lactulose and Xifaxan. Unfortunately as an outpatient, she will unlikely be able to ge t these Xifaxan due to cost. 2. She has been restarted on the diuretics with spironolactone and Lasix. 3. Continue low salt diet. 4. Palliative care team has been consulted and will see her in the morning. Hospice care would lik varinder be appropriate for this patient.
[2017-01-29] MEDS: HumaLOG 300 UNITS/3 ML VIAL SC PRN (05:59)
[2017-01-29] MEDS: Furosemide 20 MG TAB PO SCH (08:34)
[2017-01-29] MEDS: Rifaximin 550 MG TAB PO SCH (08:36)
[2017-01-29] MEDS: Spironolactone 25 MG TAB PO SCH (08:36)
[2017-01-29] MEDS: NPH, Human Insulin Isophane 300 UNIT/3 ML VIAL SC SCH (08:41)
[2017-01-29 08:44] VITALS: BP 105/67; TEMP 98.2
--- NOTE | 2017-01-29 14:02 | PDOC.PN ---
- Subjective Encounter Start Date: 01/29/17 Encounter Start Time: 08:00 Subjective: awake, not in distress - Objective Resuscitation Status: Resuscitation Status FULL:Full Resuscitation MAR Reviewed: Yes Vital Signs & Weight: Vital Signs (12 hours) Temp Pulse Resp BP Pulse Ox 01/29/17 08:00 98.2 F 112 H 20 105/67 96 Weight Admit Weight 174 lb 4 oz Weight 187 lb 14.4 oz I&O: 01/28/17 01/29/17 01/30/17 06:59 06:59 06:59 Intake Total 480 870 Balance 480 870 Result Diagrams: 01/26/17 04:37 01/26/17 04:37 Additional Labs: Accuchecks 01/29/17 01/28/17 01/28/17 04:06 19:21 16:40 POC Glucose 382 H 433 H 426 H Phys Exam - Physical Examination HEENT: PERRLA, moist MMs Neck: no JVD, supple Respiratory: no wheezing, no rales Cardiovascular: RRR, no significant murmur Gastrointestinal: soft, non-tender, positive bowel sounds Musculoskeletal: pulses present, edema present Neurological: non-focal, moves all 4 limbs Dx/Plan (1) Hepatic encephalopathy Code(s): K72.90 - HEPATIC FAILURE, UNSPECIFIED WITHOUT COMA Status: Resolved Comment: (2) DM type 2 (diabetes mellitus, type 2) Status: Chronic Qualifiers: Diabetes mellitus complication status: with unspecified complications Diabetes mellitus group home insulin use: without remote computer terminal operator use Qualified Code( s): E11.8 - Type 2 diabetes mellitus with unspecified complications Comment: on sliding scale (3) HTN (hypertension) Code(s): I10 - ESSENTIAL (PRIMARY) HYPERTENSION Status: Chronic Qualifiers: Hypertension type: essential hypertension Qualified Code(s): I10 - Essential (primary) hypertension (4) Liver cirrhosis secondary to nonalcoholic steatohepatitis (ORELLANA) Code(s): K75.81 - NONALCOHOLIC STEATOHEPATITIS (ORELLANA); K74.60 - UNSPECIFIED CIRRHOSIS OF LIVER Status: Chronic (5) Macrocytic anemia Code(s): D53.9 - NUTRITIONAL ANEMIA, UNSPECIFIED Status: Chronic (6) Physical deconditioning Code(s): R53.81 - OTHER MALAISE Status: Chronic (7) Thrombocytopenia Code(s): D69.6 - THROMBOCYTOPENIA, UNSPECIFIED Status: Chronic - Plan d/w son and at bedside -: gave options of going home with hospice -: I have told them that her liver has reached end stage and she will not impr -: -ove better than what she is at present. -: dc pt home. Very poor prognosis-family is aware * .
--- NOTE | 2017-01-29 14:48 | EKG ---
Test Reason : Blood Pressure : / mmHG Vent. Rate : 098 BPM Atrial Rate : 098 BPM P-R Int : 126 ms QRS Dur : 084 ms QT Int : 440 ms P-R-T Axes : 052 072 019 degrees QTc Int : 561 ms Normal sinus rhythm Prolonged QT Abnormal ECG Confirmed by DAWIT RASMUSSEN D.O. ([id number]), video effects editor JOSELITO GAUTHIER ([id number]) on 01/29/2017 2:48:21 PM Referred By: Confirmed By:DAWIT RASMUSSEN D.O.
--- NOTE | 2017-01-29 18:56 | DIS ---
DATE OF ADMISSION: 01/18/2017 DATE OF DISCHARGE: 01/29/2017 DISCHARGE DISPOSITION: To home. PRIMARY DISCHARGE DIAGNOSES: End-stage liver disease with hepatic encephalopathy; nonalcoholic steatohepatitis; diabetes mellitus, type 2; hypertension; macrocytic anemia; severe deconditioning and thrombocytopenia. PROCEDURES DONE DURING HOSPITALIZATION: The patient has had an abdominal and pelvic CAT scan done on the day of admission, which showed findings of cirrhosis with sequelae of portal hypertension, cholelithiasis, and ventral hernia was seen. CT brain showed no acute intracranial abnormality. Urine culture grew E. coli sensitive to Macrobid and was ESBL positive. Blood cultures x2 no growth. Discharge white count of 2.2, H and H are 8 and 24, with platelet count 36. INR 2.4, PTT 41, albumin 1.8, total bilirubin 2.4, AST 104, ALT 37, alkaline phosphatase 157. BUN 23, creatinine 0.9 on 01/26/2017. Admitting BUN and creatinine were 16 and 1.7. Ammonia levels were 118 on the day of admission. DISCHARGE MEDICATIONS: Folic acid 1 mg p.o. daily, vitamin B12 of 1000 mcg p.o. daily, Lasix 20 mg p.o. daily, lactulose 30 grams p.o. 3 times daily, Levemir 30 units subcu twice daily, Protonix 40 mg p.o. daily, spironolactone 50 mg p.o. daily, thiamine 100 mg p.o. daily, glipizide 5 mg p.o. daily. ALLERGIES: No known drug allergies. INPATIENT CONSULTS: Dr. Aaron Guillen for Gastroenterology. BRIEF COURSE DURING HOSPITALIZATION: The patient initially got admitted on for confusion and unsteady gait with known history of end-stage liver disease and hepatic encephalopathy. She was placed on lactulose and octreotide drip initially for suspicion of bleed with stool occult being positive. Her H and H had remained stable. Patient has had severe hepatic encephalopathy, which was slow to resolve. She has end-stage liver disease. Patient's and son were given complete updates including very poor prognosis with her end- stage liver disease without transplant. Patient is unfunded. Palliative care consultation was requested as well, but the family is not ready for it at present. She is very high risk for readmission. The family clearly know there is not much medically that could be done in view of her end-stage liver disease with severe hypoalbuminemia, anasarca, and coagulopathy. Please see a face-to- face documentation on [facility] for the day of discharge. MTDD
== END 2017-01-29 09:15 | disposition home or self-care (01) | DRG 441 ==
LOC: ERS 22:08 → ERHOLD 23:55 → IMCU/EMU 01-19 12:28 → T4-A 01-25 14:55
PROVIDERS: ADMIT Internal Medicine; ATTEND Internal Medicine
PROC: 0W9G3ZX Drainage of Peritoneal Cavity, Percutaneous Approach, Diagnostic (ICD-10-PCS; principal; 2017-01-27)
DX: K72.90 Hepatic failure, unspecified without coma (principal); G92 Toxic encephalopathy; N17.9 Acute kidney failure, unspecified; D61.818 Other pancytopenia; R18.8 Other ascites; E87.2 Acidosis; N39.0 Urinary tract infection, site not specified; E87.1 Hypo-osmolality and hyponatremia; E88.09 Other disorders of plasma-protein metabolism, not elsewhere classified; K74.60 Unspecified cirrhosis of liver; K75.81 Nonalcoholic steatohepatitis (NASH); E11.65 Type 2 diabetes mellitus with hyperglycemia; E87.6 Hypokalemia; I10 Essential (primary) hypertension; D73.1 Hypersplenism; B96.20 Unspecified Escherichia coli [E. coli] as the cause of diseases classified elsewhere; R79.1 Abnormal coagulation profile; R19.7 Diarrhea, unspecified; Z83.3 Family history of diabetes mellitus; Z51.5 Encounter for palliative care
CPT/HCPCS: 36415; 36416; 51701; 70450; 71010; 74177; 76705; 80053; 80069; 81003; 81015; 82105; 82140; 82274; 82553; 83605; 83735; 84100; 84484; 85025; 85610; 85730; 87040; 87077; 87086; 87186; 93005; 96365; 96366; 96367; 96375; A4216; A4353; C9113; G8978-GP-CL; G8979-GP-CJ; J0696; J1815; J2185; J2354; J3430; J7050; Q0162; S0028

== ENCOUNTER 2017-02-04 13:34 | Inpatient (IN) | payer SELFPAY ==
[2017-02-04 14:22] LABS: Hematocrit 33.8 % (36.0-47.0); Mean Platelet Volume 10.6 fL (7.4-10.4); White Blood Cell (WBC) Count 5.2 thou/uL (4.8-10.8)
[2017-02-04 14:38] LABS: Band 16 % (5-11); Macrocytosis MODERATE=16-30 cells (100X) (0-5/hpf); Neutrophil 78 % (42-75); Nucleated RBC 3 % (0); Polychromasia MODERATE = 3-4 cells (100X) (0-2/hpf); Target Cells SLIGHT = 2-5 cells (100X) (0-1/hpf); Vacuoles SLIGHT
[2017-02-04 14:48] LABS: ALT (SGPT) 160 U/L (8-55); AST (SGOT) 275 U/L (5-34); Alkaline Phosphatase 217 U/L (40-150); Anion Gap 16 mmol/L (10-20); BUN (Urea Nitrogen) 31 mg/dL (9.8-20.1); Bilirubin, Total 8.9 mg/dL (0.2-1.2); CK (CPK) 73 U/L (29-168); Calc. Creatinine Clearance 0 mL/min (70-130); Calcium 10.3 mg/dL (7.8-10.44); Carbon Dioxide 18 mmol/L (22-29); Chloride 100 mmol/L (98-107); Estimated GFR-MDRD 14; Globulin 5.3 g/dL (2.4-3.5); Lipase 15 U/L (8-78)
[2017-02-04 14:50] LABS: Troponin I 0.346 ng/mL (< 0.028)
[2017-02-04] MEDS ORDERED: ISOVUE-370 76%-LOCM 1 ML ONE (15:03)
--- NOTE | 2017-02-04 15:11 | RAD ---
1 VIEW CHEST: Date: 02/04/17 COMPARISON: 01/18/17. HISTORY: Altered mental status. Hyperglycemia. Hypotension. FINDINGS: Diminished lung volumes due to poor inspiratory effort. Cardiomegaly due to portable technique. No p neumothorax. Possible infiltrates in the lung bases. IMPRESSION: 1. Diminished lung volumes due to poor inspiratory effort. 2. Possible infiltrates in the lung bases. Better interrogation with 2 view chest radiograph with v igorous inspiration is recommended. POS: GENEVIEVE
[2017-02-04 15:30] LABS: Bilirubin Large (Negative); Blood, Urine Trace (Negative); Glucose, Urine (Dipstick) Negative (Negative); Ketone, Urine 15 mg/dL (Negative); Nitrite Negative (Negative); Protein, Urine (Dipstick) 30 mg/dL (Neg-Trace); Urobilinogen 0.2 mg/dL (0.2-1.0)
--- NOTE | 2017-02-04 15:35 | CT ---
CT ARTERIOGRAM CHEST WITH IV CONTRAST AND 3D MIP IMAGING CT ARTERIOGRAM ABDOMEN AND PELVIS WITH IV CONTRAST AND 3D MIP IMAGING: HISTORY: Chest and abdomen pain with radiation to back. COMPARISON: 01/18/17. FINDINGS: There is good contrast opacification of the pulmonary arteries and aorta without evidence of dissect ion. Normal branching of the great vessels from the aortic arch is apparent. Mesenteric arteries a re patent. A small amount of right pleural fluid is present with significant atelectasis at each posterior lung base. Liver remains shrunken and nodular. A large amount of free fluid throughout the abdomen and pelvis has increased. Spleen remains enlarged. Extensive splenic varices are again demonstrated. Hyperdense stones are present within the gallbladder lumen. Tiny nonobstructing calculus at the in ferior pole of the left kidney is stable. Unobstructed bowel extending into a large anterior abdominal wall hernia is again demonstrated. The re are dilated loops of small bowel throughout the abdomen without point of obstruction apparent. I n the right abdomen, circumferential wall thickening involves the right colon where there is strandi ng in the adjacent fat. Appendix is not well delineated. Subtle circumferential wall thickening al so involves the sigmoid colon. IMPRESSION: 1. No CT evidence of aortic dissection or aneurysm. 2. Inflammation of the right colon and sigmoid colon. Cause is not evident. Dilated small bowel i s favored to be related to ileus rather than obstruction. 3. Significant interval increase in abdominal fluid with other findings of cirrhosis and portal rachel ous hypertension. 4. Cholelithiasis. 5. Tiny nonobstructing left renal calculus. 6. Other chronic-type findings are stable. POS: GENEVIEVE
[2017-02-04 15:45] LABS: Bacteria/HPF 4+ HPF (None Seen); Hyaline Casts/LPF 0-3 HYALINE CAST LPF (0-3 Hyaline); RBC/HPF 0-3 HPF (0-3)
[2017-02-04 16:20] LABS: BF Reference Range Comment Note:
[2017-02-04 16:44] LABS: BF Color Yellow
[2017-02-04 16:56] LABS: Number Cells Counted-Fluids 100
[2017-02-04 17:52] LABS: Critical Call Chem Troponin I RESULT DECREASING; Troponin I 0.305 ng/mL (< 0.028)
[2017-02-04] MEDS ORDERED: Albumin 25% 25 GM/100 ML BOT IVPB SCH (18:00)
[2017-02-04 18:09] LABS: Lactic Acid - Sepsis 6.4 mmol/L (0.5-2.2)
[2017-02-04] MEDS ORDERED: Dextrose 50% Abboject 50 ML SYRINGE SLOW IVP PRN (18:23)
[2017-02-04] MEDS ORDERED: Dextrose 5% in Water 1,000 ML IV PRN (18:23)
[2017-02-04] MEDS ORDERED: Meropenem 1 GM VIAL ONE (18:56)
--- NOTE | 2017-02-04 18:58 | HP ---
PRIMARY CARE PHYSICIAN: Cyndi Bauer M.D. CHIEF COMPLAINT: Abdominal pain. HISTORY OF PRESENT ILLNESS: Ms. Rosas is a pleasant 56-year-old lady who was seen at [facility] for abdominal pain. She speaks mainly Uzbek. Translation services were o btained from medical student who was with me. The patient's family members are not available. The patient is able to provide minimal history. Colorectal history was obtained from review of medical records as well as from discussion with the emergency room physician. The patient reports developing abdominal pain earlier today. She reports that it is diffused, 4-5/1 0, nonradiating, no known aggravating or relieving factors. She reports that she feels tired. She denies any nausea or vomiting. The patient was hospitalized at this facility from 01/18/2017 to 01/29/2017 of this year for end-sta ge liver disease with hepatic encephalopathy. During that hospitalization, she was also found to merchant ve urine cultures growing ESBL positive Escherichia coli. She initially received meropenem, which w as subsequently discontinued. REVIEW OF SYSTEMS: The following complete review of systems was negative, unless otherwise mentione d in the HPI or below: Constitutional: Weight loss or gain, sense of well-being, ability to conduct usual activities, exer cise tolerance. Skin/Breast: Rash, itching, changes in hair growth or loss, nail changes, breast lumps, tenderness, swelling, nipple discharge. Eyes: Vision, double vision, tearing, blind spots, pain. ENT/Mouth: Headaches (location, time of onset, duration, precipitating factors), vertigo, lighthead edness, injury. Vision, double vision, tearing, blind spots, pain, nose bleeding, colds, obstruction , discharge, dental difficulties, gingival bleeding, dentures, neck stiffness, pain, tenderness, mas ses in thyroid or other areas. Cardiovascular: Precordial pain, substernal distress, palpitations, syncope, dyspnea on exertion, o rthopnea, nocturnal paroxysmal dyspnea, edema, cyanosis, hypertension, heart murmurs, varicosities, phlebitis, claudication. Respiratory: Pain, shortness of breath, wheezing, stridor, cough, hemoptysis, fever or night sweats . Gastrointestinal: Poor appetite, dysphagia, indigestion, abdominal pain, heartburn, eructation, katherine sea, vomiting, hematemesis, jaundice, constipation, or diarrhea, abnormal stools (lizy-colored, fausto y, bloody, greasy, foul smelling), flatulence, hemorrhoids, recent changes in bowel habits. Genitourinary: Urgency, frequency, dysuria, nocturia, hematuria, polyuria, oliguria, unusual (or ch cornell in) color of urine, stones, hesitancy, change in size of stream, dribbling, acute retention or incontinence, libido, potency. Musculoskeletal: Pain, swelling, redness or heat of muscles or joints, limitation, of motion, muscu lar weakness, atrophy, cramps. Neurologic/Psychiatric: Convulsions, paralyses, tremor, incoordination, paresthesias, difficulties with memory of speech, sensory or motor disturbances, or muscular coordination (ataxia, tremor), emo tional problems, anxiety, depression, previous psychiatric care, unusual perceptions, hallucinations . Allergy/Immunologic: Skin rash, anemia, bleeding tendency, polydipsia, polyuria, intolerance to hea t or cold. PAST MEDICAL HISTORY: Significant for nonalcoholic steatohepatitis, diabetes mellitus type 2, hyper tension, and obesity. PAST SURGICAL HISTORY: Significant for EGD, and umbilical hernia repair. SOCIAL HISTORY: No history of tobacco use, alcohol use or recreational drug use. FAMILY HISTORY: Significant for diabetes mellitus. ALLERGIES: No known drug allergies. CURRENT MEDICATIONS: Folic acid 1 mg daily, vitamin B12 1000 mcg daily, Lasix 20 mg daily, lactulos e 30 grams 3 times a day, Levemir 30 units subcutaneously 2 times a day, Protonix 40 mg daily, rachel nolactone 50 mg daily, thiamine 100 mg daily, and Glipizide 5 mg daily. PHYSICAL EXAMINATION: GENERAL: Ms. Rosas is sleepy, but arousable, not in acute distress. VITAL SIGNS: Blood pressure is 87/49, pulse is 112. She is breathing at rate of 20 and saturating 96% on room air. HEENT: Eyes: She has scleral icterus. She does not have conjunctival pallor. ENT: Dry mucosal m embranes, no oropharyngeal erythema or exudates. NECK: Supple, nontender, normal range of movement, trachea is midline. RESPIRATORY: Accessory muscles of breathing are not active. Chest wall movements are symmetric sheldon aterally. LUNGS: Clear to auscultation, without wheeze, rhonchi or crepitations. CARDIOVASCULAR: S1 and S2 are heard, regular. Peripheral pulses are palpable. No carotid bruit, n o pericardial rub. ABDOMEN: Distended, mild diffuse tenderness, no guarding or rigidity, bowel sounds are heard, no he patomegaly, no splenomegaly. SKIN: No rashes or subcutaneous nodules. NEUROLOGIC: Full neurologic examination not possible secondary to the patient's noncooperation. Th ere is no facial droop. She is moving all 4 extremities. Deep tendon reflexes 2+, plantar reflexes downgoing bilaterally. MUSCULOSKELETAL: Moving all 4 extremities. Normal passive range of movement at all major extremity joints. LYMPHATIC: No cervical lymphadenopathy. PSYCHIATRIC: Normal mood, normal affect, the patient is oriented to person only, not to place or ti me. LABS AND INVESTIGATIONS: Ms. Rosas labs and investigations were reviewed. I reviewed her elect rocardiogram, which shows sinus tachycardia, no ST changes to suggest an acute coronary syndrome. I also reviewed her chest x-ray, which does not show any obvious pulmonary infiltrates. She also had a CT angiogram of the abdomen and pelvis, which did not reveal any CT evidence of aortic dissection or aneurysm. She had inflammation of the right colon and sigmoid colon, cause was not evident. Sh marisol also has cholelithiasis and tiny nonobstructing left renal calculus. She also has cirrhosis and f indings of portal venous hypertension. Laboratory investigation show a normal white count, macrocyt ic anemia with hemoglobin of 10, thrombocytopenia with platelet count of 56,000, hyponatremia with s odium of 130, elevated creatinine of 3.31, last known creatinine normal at 0.94 on 01/26/2017, eleva axel blood urea nitrogen of 31, elevated total bilirubin of 8.9, last one bilirubin 2.4 on 01/26/2017 , elevated AST of 275, 104 on 01/26/2017, ALT elevated at 160, normal at 37 on 01/26/2017, alkaline phosphatase elevated at 217, 157 on 01/26/2017, normal ammonia level of 32, normal creatinine kinase , elevated troponin I level of 0.346, decreased albumin of 1.7 and normal lipase. Urinalysis is pos itive for bilirubin, small amount of leukocyte esterase and negative for nitrites. She also had a p aracentesis done. The study results are pending. ASSESSMENT AND PLAN: Ms. Rosas is a pleasant 56-year-old lady who was seen at [facility]. Her problem list includes: 1. Abdominal pain: Etiology unclear. Spontaneous bacterial peritonitis is suspected. We will sta rt the patient on fluoroquinolone. Because of the possibility of urinary tract infection and previo us infections with ESBL positive organisms, we will also initiate meropenem. 2. Acute kidney injury: Etiology unclear. We will provide intravenous hydration. We will check a bdominal ultrasound, urine electrolytes. We will consult Nephrology service. 3. Hypotension: Most likely secondary to sepsis/infection. Provide IV hydration, admitted to the Critical Care Unit for further management, continue antibiotics. 4. Elevated troponin I: Likely secondary to sepsis or demand ischemia. Recheck cardiac enzymes, o btain 2D echocardiogram and consult Cardiology Service for help with further management. 5. Diabetes mellitus. Start insulin sliding scale. 6. Abnormal liver function test: Worsening. Given history of liver disease, consult Gastroenterol varun. 7. Hypertension: The patient has a history of hypertension. Currently, she is hypotensive. We wi ll hold blood pressure medications for now. Many thanks for allowing me to participate in your patient's care. Please feel free to contact me w ith any questions or concerns. LEVEL OF RISK: High. LEVEL OF COMPLEXITY: High.
[2017-02-04] MEDS: Meropenem 1 GM in Sodium Chloride 0.9% 100 ML IVPB SCH (20:00)
[2017-02-04] MEDS: Albumin 25% 25 GM/100 ML BOT IVPB SCH (20:31)
[2017-02-04] MEDS: Sodium Chloride 0.9% 1,000 ML IV SCH (20:31)
[2017-02-04] MEDS ORDERED: Norepinephrine 8 MG/0.9% NS 250 ML ONE (20:49)
[2017-02-04 20:54] LABS: Troponin I 0.247 ng/mL (< 0.028)
[2017-02-04] MEDS ORDERED: Heparin 5,000 UNITS/ML VIAL SC SCH (21:00)
[2017-02-04] MEDS: Ferrex 150 Plus (iron poly cmplx) PO SCH (21:06)
[2017-02-04] MEDS: HumaLOG 300 UNITS/3 ML VIAL SC PRN (21:08)
[2017-02-04 21:12] VITALS: BMI 37.8
--- NOTE | 2017-02-04 21:16 | RAD ---
SUPINE PORTABLE CHEST ONE VIEW: 02/04/17 HISTORY: 56-year-old female to evaluate right central line placement. Patient complains of abdominal pain and dizziness this morning and then fell after getting out of bed. Elevated blood glucose and hypotensi on. FINDINGS: Right central line catheter has been placed. The tip of which extends probably into the region of th e right atrium. Poor inspiratory effort. Bilateral vascular congestion with some parenchymal changes in the right lower lobe and less so in the left lower lobe, probably atelectasis and minimal pleura l effusion. Somewhat distended abdomen with multiple gallstones. IMPRESSION: Right central line in place with the tip extending into the region of the right atrium. Very poor in spiration with bibasilar pulmonary parenchymal changes and small right pleural effusion and bilatera l vascular congestion. Evidence for abdominal distention with multiple gallstones within the gallbla dder. POS: GENEVIEVE
--- NOTE | 2017-02-04 22:51 | CON ---
DATE OF CONSULTATION: 02/04/2017 CONSULTING PHYSICIAN: Dr. Jovel from [facility]. REASON FOR CONSULTATION: Sepsis. HISTORY OF PRESENT ILLNESS: The patient is a 56-year-old female with end-stage liver disease. She came in today with confusion. She has a GCS of 12. She speaks Gibraltarian only. She is complaining of some abdominal pain. She underwent a paracentesis in the ER, which was consistent with spontaneous bacterial peritonitis. PAST MEDICAL HISTORY: 1. Cirrhosis due to fatty liver disease. 2. Esophageal varices. 3. Spontaneous bacterial peritonitis. 4. Diabetes mellitus type 2. 5. Hypertension. 6. Obesity. PAST SURGICAL HISTORY: She had a and also had an umbilical hernia repair. FAMILY MEDICAL HISTORY: Unremarkable. ALLERGIES: None. SOCIAL HISTORY: Does not smoke, does not consume alcohol. MEDICATIONS: On her last discharge, she was taking folate, vitamin B12, Lasix, lactulose, Levemir i nsulin, Protonix, spironolactone, thiamine and glipizide. REVIEW OF SYSTEMS: Unobtainable at this time as the patient has decreased responsiveness. PHYSICAL EXAMINATION: VITAL SIGNS: O2 sat 95%, pulse 105, blood pressure 95/50. GENERAL: She appears chronically ill. HEENT: Remarkable for icteric sclerae. NECK: Without adenopathy or JVD. LUNGS: Diminished breath sounds in the bases. CARDIOVASCULAR: S1, S2, slightly tachycardic. ABDOMEN: Distended, protuberant with fluid present. EXTREMITIES: No edema. LABORATORY AND X-RAY FINDINGS: White blood cell count 5.2, hematocrit 33.8, platelet count 56 with 78% neutrophils, 16% bands. Sodium 130, potassium 3.9, chloride 100, CO2 of 18, BUN 31, creatinine 3.3, glucose 237, AST 275, ALT 160, albumin 1.7. Urinalysis shows 4-6 white blood cells. Peritonea l fluid showed 3040 white blood cells. Chest x-ray shows devin diaphragmatic elevation from ascites . ASSESSMENT: 1. Spontaneous bacterial peritonitis. 2. Sepsis. 3. End-stage cirrhosis from fatty liver disease. PLAN: 1. She is being admitted to the ICU for intense nursing care. 2. Would be very cautious as to not overly fluid resuscitate the patient as she will third space ev erything. I would recommend supplemental albumin. 3. I agree with broad-spectrum IV antibiotics-currently she is on Levaquin and meropenem. 4. Would recommend GI consultation for large volume paracentesis. Patient's prognosis appears quit e poor. I will inform Dr. Edwards of patient's admission as he has seen her in the past.
[2017-02-05 02:03] LABS: Band 7 % (5-11); Hematocrit 27.4 % (36.0-47.0); Neutrophil 75 % (42-75); Red Blood Cell (RBC) Count 2.42 mill/uL (4.20-5.40)
[2017-02-05 02:12] LABS: Troponin I 0.275 ng/mL (< 0.028)
[2017-02-05 02:44] LABS: Anion Gap 16 mmol/L (10-20); BUN (Urea Nitrogen) 34 mg/dL (9.8-20.1); Calc. Creatinine Clearance 28 mL/min (70-130); Calcium 10.2 mg/dL (7.8-10.44); Carbon Dioxide 19 mmol/L (22-29); Chloride 102 mmol/L (98-107); Estimated GFR-MDRD 15
[2017-02-05] MEDS: Albumin 25% 25 GM/100 ML BOT IVPB SCH ×4 (03:52→21:50)
[2017-02-05] MEDS: Sodium Chloride 0.9% 1,000 ML IV SCH (03:54)
[2017-02-05] MEDS: Norepinephrine 8 MG/250 ML BAG IVPB PRN ×3 (04:36→17:50)
[2017-02-05] MEDS: Meropenem 1 GM in Sodium Chloride 0.9% 100 ML IVPB SCH ×2 (04:36→15:39)
[2017-02-05] MEDS: HumaLOG 300 UNITS/3 ML VIAL SC PRN ×2 (05:35→12:40)
[2017-02-05 08:03] LABS: Prothrombin Time 38.2 SEC (12.0-14.7)
[2017-02-05] MEDS: Ferrex 150 Plus (iron poly cmplx) PO SCH ×2 (08:37→21:50)
[2017-02-05] MEDS ORDERED: Sodium Chloride 0.9% 1,000 ML IV SCH (08:47)
[2017-02-05] MEDS ORDERED: Cyanocobalamin (Vitamin B-12) 1,000 MCG TAB PO SCH (09:00)
[2017-02-05] MEDS ORDERED: Multivitamin W/ Minerals 1 TAB PO SCH (09:00)
[2017-02-05] MEDS ORDERED: Folic Acid 1 MG TAB PO SCH (09:00)
[2017-02-05] MEDS ORDERED: FLU VACC QS2017-18 36 mo. & older 0.5 ML SYRINGE IM ONE (09:00)
--- NOTE | 2017-02-05 09:31 | CON ---
DATE OF CONSULTATION: 02/05/2017 REASON FOR CONSULTATION: Increased troponin levels in the setting of cirrhosis and hypotension. HISTORY OF PRESENT ILLNESS: Ms. Rosas is a 56-year-old unfortunate female. She was brought to the emergency room yesterday with abdominal pain and was found to have ascites. As p art of the evaluation, a troponin level was obtained and it was slightly elevated as will be outline d below. She also has renal failure. The patient states she is not having chest pain or pressure now, just her abdomen hurts. PAST MEDICAL HISTORY: The patient has advanced liver disease with cirrhosis and ascites, has had [facility] hospitalizations for that. REVIEW OF SYSTEMS: Review of systems is obtained from the chart include: CONSTITUTIONAL: According to the records, no weight gain or loss, she has tremendous amount of asci eufemia. SKIN: No rashes. EYES: No changes in the vision. ENT: No headaches. CARDIAC: No chest pain or pressure. PULMONARY: No shortness of breath. GASTROINTESTINAL: She does have abdominal discomfort. PAST MEDICAL HISTORY: Cirrhosis. PAST SURGICAL HISTORY: EGD. SOCIAL HISTORY: No tobacco or alcohol of any significance. ALLERGIES: None known. MEDICATIONS PRIOR TO ADMISSION: 1. Folic acid. 2. Lasix. 3. Lactulose. 4. Protonix. 5. Spironolactone. 6. Glipizide. PHYSICAL EXAMINATION: GENERAL: This is a chronically ill appearing woman who looks much older than her chronologic age wi th a tremendous amount of abdominal distention and ascites. VITAL SIGNS: Her blood pressure 88/56, earlier it was 79/56, pulse is 120, it is sinus tachycardia. EYES: Sclerae are nonicteric. LUNGS: Clear anteriorly and laterally. CARDIOVASCULAR: Tachycardic arrest, no murmur, rub or gallop. ABDOMEN: Very distended with ascites. EXTREMITIES: Warm, dry, no clubbing or cyanosis. There is no edema. PERTINENT LABORATORY AND X-RAY FINDINGS: Hemoglobin is 8.6. INR is 3.7, creatinine is 3.18, she is not making any urine. Lactic acid 6.4. Troponin 0.275. The rhythm strip reveals sinus tachycardia. EKG; sinus tachycard ia, low voltage. ASSESSMENT: 1. Increased troponin appears to be demand ischemia. 2. Hypotension. 3. Cirrhosis with ascites. PLAN: 1. Echocardiogram is being done. 2. She is on intravenous Levophed.. 3. Prognosis would appear to be poor. 4. Echocardiogram will be reviewed. 5. Nothing else indicated from a cardiac standpoint. Prognosis does appear very poor as outlined previously in the notes. Now the patient actually has r enal failure on top of the hepatic failure.
--- NOTE | 2017-02-05 09:42 | ULT ---
BILATERAL RENAL SONOGRAM: Date: 02/05/17 HISTORY: Renal failure. FINDINGS: The right kidney is 8.3 cm in length and the left is 9.1 cm. There is no evidence of hydronephrosis or renal mass. Urinary bladder is incompletely distended with Boucher catheter in place. Free fluid is apparent throughout the abdomen. IMPRESSION: 1. Renal atrophy. No evidence of urinary tract obstruction. 2. Ascites. POS: [facility]
[2017-02-05] MEDS: Vasopressin 40 UNIT, Admixture Fee 1 EACH in Sodium Chloride 0.9% 100 ML IV SCH (10:20)
--- NOTE | 2017-02-05 10:40 | CON ---
DATE OF CONSULTATION: 02/05/2017 CONSULTING PHYSICIAN: Dr. Jovel REASON FOR CONSULTATION: Acute kidney injury. REASON FOR ADMISSION: Abdominal pain. HISTORY OF PRESENT ILLNESS: This is a 56-year-old female with history of cirrhosis, type 2 diabetes , and hypertension who came to the hospital with abdominal pain and is being evaluated. She is seen in ICU and she was found to have a creatinine of 3.3 on admission, this morning it was 3.1, potassi um was 4.1. She is not able to give a good history. She was hypotensive when I saw her in 70s and on pressors and . She is not making much urine. No fever or chills. No nausea or vomiting re ported. PAST MEDICAL HISTORY: 1. Positive for fatty liver. 2. Type 2 diabetes. 3. Hypotension. 4. Obesity. PAST SURGICAL HISTORY: EGDs, C-sections, umbilical hernia repair. HOME MEDICATIONS: Folic acid, vitamin B12, Lasix, lactulose, Levemir, Protonix, spironolactone, thi amine, glipizide. ALLERGIES: No known drug allergies. SOCIAL HISTORY: No smoking or alcohol use. FAMILY HISTORY: No history of kidney disease. REVIEW OF SYSTEMS: Review of systems could not be obtained due to altered mentation. PHYSICAL EXAMINATION: GENERAL: This is a 56-year-old female who is not responding. VITAL SIGNS: Temperature 96.3, pulse 121, respiratory rate 20, blood pressure 88/56. HEENT: Atraumatic, normocephalic. Oral mucosa is moist. NECK: Supple, no masses. CARDIOVASCULAR: S1, S2. Rate and rhythm regular. RESPIRATORY: Clear. MUSCULOSKELETAL: 1+ edema. DERMATOLOGIC: No skin rash. PSYCHIATRIC: Mood and affect normal. LABORATORY: WBC 8.0, hemoglobin is 8.6. INR is 3.7, potassium 4.1, BUN 4, creatinine 3.1, albumin is 1.7, AST 275. Blood culture is showing gram negative [place]. ASSESSMENT AND PLAN: 1. Acute kidney injury most likely from sepsis. 2. Gram-negative [place] sepsis. Continue antibiotics and follow. 3. Hyponatremia. 4. Acidosis. 5. Elevated liver enzymes. 6. Hypoalbuminemia. 7. Anemia. 8. Sepsis with septic shock, currently on Levaquin. Overall prognosis is poor. Continue supportive care. No acute indication for dialysis. We will fo boris.
--- NOTE | 2017-02-05 13:21 | PRG ---
DATE OF SERVICE: 02/05/2017 SERVICE: Pulmonary Medicine. INTERVAL HISTORY: The patient is doing very poorly. She is quite sleepy though she is protecting her airway. She cannot provide much in the way of the interval history. The family is very aware that the patient is likely due very poorly during this hospital stay and could even pass away. That being said, they are requesting that she remain a FULL CODE at this time. I do think that we are bordering on futility at this time given her advanced comorbidities. She remains on 25 mcg of Levophed and this can be titrated away at this time. PHYSICAL EXAMINATION: VITAL SIGNS: Afebrile, pulse 121, blood pressure 84/58, respirations 14, saturation 93% on 2 liters nasal cannula. HEENT: Normocephalic, atraumatic. Sclerae are yellow. Conjunctivae pink. Oral and nasal mucosa is moist. There are no lesions. HEART: Tachycardic. Regular. LUNGS: Decreased air entry bilaterally. There is no prolonged expiratory phase. Crackles are present throughout. ABDOMEN: Distended. Tender to palpation throughout with positive rebound. There is no guarding. She has tense with ascites. GENITOURINARY: Boucher catheter in place. NEUROLOGIC: Grossly nonfocal. LABORATORY DATA: WBC 8.0, hemoglobin 8.6, platelets 57,000. INR 3.7. Creatinine 3.18, which is gently down trending. BUN 37, lactate 6. Basic metabolic profile is otherwise unremarkable. Calcium is 10.2. Troponin was originally down trending to 0.247, but is now trending back upward to 0.275. CK -MB falls within the normal limits. Liver function studies demonstrated an elevated AST and ALT as well as alkaline phosphatase. Her albumin is only 1.7. Bilirubin is quite elevated in the urine. Nitrites are negative, leukocyte esterase is only small. The paracentesis fluid is consistent with spontaneous bacterial peritonitis with a significant amount of neutrophils. Blood cultures are growing gram negative rods in 1 out of 2. Body fluid culture is unremarkable to date. IMAGIN. Chest x-ray demonstrates low lung volumes. 2. CT of the abdomen and pelvis demonstrates massive ascites with colonic wall thickening. Additionally, the patient has complete atelectasis of the right middle lobe, and majority of the right lower lobe except for the anterior basal segment. The left lower lobe has partial atelectasis which is not too terribly pronounced. She has a possible infiltrate in the lingula. ASSESSMENT: 1. Acute hypoxic respiratory failure. 2. Atelectasis of the right middle lobe, right lower lobe, and part of the left lower lobe. 3. Spontaneous bacterial peritonitis. 4. Septic shock. 5. Acute kidney injury. 6. Hepatorenal syndrome. 7. End-stage liver disease. 8. Metabolic encephalopathy. 9. Severe protein calorie malnutrition. 10. Multisystem organ dysfunction. PLAN: We will continue the best supportive care that we can. Hopefully, we will not have to intubate her because if we do, things will essentially be futile moving forward. That being said, she does remain a FULL CODE. I transduce CVP and this was running roughly 15. As such, we will try to minimize fluids moving forward. I will add vasopressor. An NG tube will need to be placed that we can continue administering her lactulose. A palliative care consultation will be ordered. Of note, the patient has been completely anuric since she has arrived in the hospital. She got contrast on the CT of the belly when she came in. My suspicion is that her kidney function is going to get much worse and likely progress to requiring dialysis. If this occurs, she certainly would not be a good candidate from my perspective for dialysis. is expected during this hospital stay. The family was updated at bedside. YUE
--- NOTE | 2017-02-05 15:25 | PDOC.PN ---
- Subjective Encounter Start Date: 02/05/17 Encounter Start Time: 09:00 Pt seen for followup re; septic shock. Sleepy but arousable, unable to provide ROS. - Objective MAR Reviewed: Yes Vital Signs & Weight: Vital Signs (12 hours) Temp Pulse Resp Pulse Ox 02/05/17 12:00 97.2 F L 94 L 02/05/17 08:00 96.8 F L 121 H 16 94 L 02/05/17 07:54 93 L 02/05/17 07:00 96.8 F L 02/05/17 04:00 97.7 F Most Recent Monitor Data Heart Rate from ECG 117 NIBP 105/63 NIBP BP-Mean 80 Respiration from ECG 17 SpO2 94 I&O: 02/04/17 02/05/17 02/06/17 06:59 06:59 06:59 Intake Total 1337 100 Output Total 0 50 Balance 1337 50 Result Diagrams: 02/05/17 01:39 02/05/17 01:39 Additional Labs: Accuchecks 02/05/17 02/05/17 02/04/17 11:28 05:35 21:05 POC Glucose 180 H 201 H 215 H EKG Reviewed by me: Yes (Tele: NSR) Phys Exam - Physical Examination Obese sleral icterus, conjunctival pallor Neck: no JVD Respiratory: no wheezing, no rales, no rhonchi, clear to auscultation bilateral Cardiovascular: RRR, no rub Gastrointestinal: soft, positive bowel sounds mild tenderness diffusely, no guarding/rigidity. Distention+ Musculoskeletal: pulses present, edema present Neurological: moves all 4 limbs Lymphatic: no nodes Deviation from normal: Appears tired. Unable to assess orientation to person, place or time Skin: no rash, normal turgor, cap refill <2 seconds Dx/Plan (1) Septic shock Code(s): A41.9 - SEPSIS, UNSPECIFIED ORGANISM; R65.21 - SEVERE SEPSIS WITH SEPTIC SHOCK Status: Acute (2) CHRISTAL (acute kidney injury) Code(s): N17.9 - ACUTE KIDNEY FAILURE, UNSPECIFIED Status: Acute (3) Elevated troponin Code(s): R74.8 - ABNORMAL LEVELS OF OTHER SERUM ENZYMES Status: Acute (4) DM type 2 (diabetes mellitus, type 2) Status: Chronic Qualifiers: Diabetes mellitus complication status: with unspecified complications Diabetes mellitus terminal operator insulin use: without terminal operator use Qualified Code( s): E11.8 - Type 2 diabetes mellitus with unspecified complications Comment: on sliding scale - Plan plan discussed w/ family, continue antibiotics, DVT proph w/SCDs * . Continue IV meropenem, IV levofloxacin (renal-adjusted doses), await culture results. 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 Prognosis appears to be poor. Appreciate cardiology, pulmonology and nephrology services inputs. Review of Systems - Medications/Allergies Allergies/Adverse Reactions: Allergies Allergy/AdvReac Type Severity Reaction Status Date / Time No Known Drug Allergies Allergy Verified 02/04/17 20:05 Medications: Current Medications Albumin Human (Albumin 25%) 25 gm IVPB 0300,0900,1500,2100 [facility] Stop: 02/06/17 03:01 Last Admin: 02/05/17 07:36 Dose: 25 gm Cyanocobalamin (Vitamin B-12) 1,000 mcg PO DAILY [facility] Last Admin: 02/05/17 08:36 Dose: Not Given Dextrose/Water (Dextrose 50%) 25 gm SLOW IVP PRN PRN PRN Reason: Hypoglycemia Folic Acid (Folvite) 1 mg PO DAILY [facility] Last Admin: 02/05/17 08:37 Dose: Not Given Glucagon (Glucagon) 1 mg IM PRN PRN PRN Reason: Hypoglycemia Dextrose/Water (D5w) 1,000 mls @ 0 mls/hr IV .Q0M PRN; As Directed PRN Reason: Hypoglycemia Norepinephrine Bitartrate (Levophed) 250 mls @ 0 mls/hr IVPB INF PRN; Protocol ; Titrate PRN Reason: TO KEEP SBP BETWEEN 80-85 Last Admin: 02/05/17 10:20 Dose: 250 mls Sodium Chloride (Normal Saline 0.9%) 1,000 mls @ 0 mls/hr IV .Q0M EDUAR PRN Reason: KVO Meropenem 1 gm/ Sodium (Chloride) 100 mls @ 200 mls/hr IVPB 0400,1600 EDUAR Vasopressin 40 unit/Miscellaneous Medication 1 each/ Sodium Chloride 102 mls @ 6 mls/hr IV INF [facility] Last Admin: 02/05/17 10:20 Dose: 102 mls Insulin Human Lispro (Humalog) 0 units SC .MILD SLIDING SCALE PRN PRN Reason: Mild Correctional Scale Last Admin: 02/05/17 12:40 Dose: 2 unit Iron/Minerals/Multivitamins (Theragran M) 1 tab PO DAILY [facility] Last Admin: 02/05/17 08:38 Dose: Not Given Lactulose (Lactulose) 30 gm PO TID [facility] Last Admin: 02/05/17 08:37 Dose: Not Given Miscellaneous Medication (Ferrex 150 Plus Capsule) 1 each PO BID [facility] Last Admin: 02/05/17 08:37 Dose: Not Given Pantoprazole Sodium (Protonix) 40 mg PO DAILY [facility] Last Admin: 02/05/17 08:38 Dose: Not Given Sodium Chloride (Flush - Normal Saline) 10 ml IVF Q12HR [facility] Last Admin: 02/05/17 08:38 Dose: 10 ml Sodium Chloride (Flush - Normal Saline) 10 ml IVF PRN PRN PRN Reason: Saline Flush Thiamine HCl (Thiamine) 100 mg PO DAILY [facility] Last Admin: 02/05/17 08:38 Dose: Not Given
--- NOTE | 2017-02-05 15:36 | RAD ---
EXAM: ONE VIEW CHEST 02/05/17 HISTORY: Nasogastric tube placement. FINDINGS: There are diminished lung volumes. Bibasilar pleural and parenchymal changes are noted, right greate r than left. There is a right sided central venous catheter with the distal tip likely in the inferi or vena cava, unchanged. Consider repositioning. There is a nasogastric tube with the distal tip in the left upper quadrant. IMPRESSION: 1. Nasogastric tube as above. 2. Central venous catheter as above. 3. Persistent diminished lung volumes with bibasilar pleural and parenchymal changes. POS: [facility]
--- NOTE | 2017-02-05 16:21 | CON ---
DATE OF CONSULTATION: 02/05/2017 GI INPATIENT CONSULTATION NOTE REQUESTING PHYSICIAN: Navi Jovel M.D. REASON FOR CONSULTATION: End-stage liver disease. HISTORY OF PRESENT ILLNESS: Italo Rosas is an unfortunate 56-year-old woman seen in the past by my GI colleague, Dr. Aaron Guillen. She has a history of ORELLANA cirrhosis with hepatic encephalopa thy, esophageal varices and prior history of spontaneous bacterial peritonitis. She was actually re cently hospitalized with an ESBL E. coli infection and recently discharged. However, she was admitt ed to the hospital again yesterday after complaining of progressive diffuse abdominal pain and fatig ue. Upon arrival, she was found to have a large amount of ascites as well as acute kidney injury an d hypotension. There has been no nausea or vomiting, no particular respiratory distress, but she merchant s had worsening of mental status today. She is able to follow commands, but not participate in conv ersations. She is now on pressors and has been anuric since admission, started on Levaquin and gem penem. Paracentesis studies are positive for SBP with WBC count 3040, 92% neutrophils. Blood cultu res are already growing E. coli. Her MELD score calculates out to 40 with creatinine 3.18, total bi lirubin 8.9 and INR up to 3.7. She is on broad spectrum antibiotics as well as IV albumin. REVIEW OF SYSTEMS: Unable to obtain as the patient is really not able to converse. PAST MEDICAL HISTORY: 1. ORELLANA cirrhosis, decompensated. 2. Hepatic encephalopathy. 3. ESBL E. coli SBT. 4. Hypertension. 5. Diabetes. 6. . 7. Hernia repair. 8. Esophageal varices. ALLERGIES: No known drug allergies. OUTPATIENT MEDICATIONS: Folic acid, vitamin B12, Lasix 20 mg daily, lactulose 30 g 3 times daily, L evemir insulin, Protonix 40 mg daily, spironolactone 50 mg daily, thiamine 100 mg daily, glipizide. INPATIENT MEDICATIONS: Albumin 25 grams IV q.6 hours, vitamin B12, folic acid, sliding scale insuli n, lactulose 30 g t.i.d., meropenem 1 gram IV q.12 hours, Levophed drip, Protonix 40 mg daily, leslie ine 100 mg p.o. daily, and vasopressin drip. FAMILY HISTORY: Noncontributory. SOCIAL HISTORY: No smoking or alcohol use. She speaks Nepalese only, so did her . I spoke w ith her via japanese interpreter phone today. PHYSICAL EXAMINATION: VITAL SIGNS: Pulse 116, blood pressure 103/49, 95% oxygen saturation on 3 liters nasal cannula, and temperature is 97.2. GENERAL: Critically ill 56-year-old woman lying in bed in mild distress. SKIN: Jaundiced. She has decubitus ulcer for which I have viewed photodocumentation. EYES: Scleral icterus. Extraocular movements intact. ENT: Dry mucous membranes. She has a nasogastric tube in place. HEART: Regular, tachycardia. LUNGS: Bibasilar crackles. No wheezing, no respiratory distress. ABDOMEN: Distended with ascites. Bowel sounds are present, soft, some mild tenderness to palpation diffusely. The abdomen is not tense. EXTREMITIES: No peripheral edema. NEUROLOGIC: The patient is able to follow simple commands, but not participate in conversation. LABORATORY STUDIES: WBC 8, hemoglobin 8.6, platelets 57, MCV 113, BUN 34, creatinine 3.18, glucose 180. INR 3.7, lactic acid 5.4. Ammonia 32, troponin 0.27, total bilirubin 8.9, alkaline phosphatas e 217, AST 275, ALT 160, albumin 1.7, lipase 15. Blood culture growing E. coli. Peritoneal culture no growth at 12 hours, but paracentesis fluid studies showed 3040 WBCs, 92% neutrophils, total prot ein less than 1. IMAGING STUDIES: CT of the abdomen and pelvis showed thickening of the right colon and sigmoid colo n with a large amount of ascites, shrunken nodular liver, and splenomegaly. Chest x-ray showed dimi nished lung volumes and possible bibasilar infiltrates. Renal ultrasound showed no evidence of obst ruction. ASSESSMENT AND PLAN: 1. Spontaneous bacterial peritonitis. 2. Septic shock, secondary to Escherichia coli. 3. Multiorgan failure secondary to septic shock. 4. Nonalcoholic steatohepatitis cirrhosis, end stage. Agreed that the prognosis is very dismal her e. Her MELD score calculates out to 40 which converse over 70% on 3 month mortality. She is essent ially anuric at this time. I agree with the institution of albumin as well as continuing the antibi otics and aggressive supportive care for now. I really think there would be very little benefit to large volume paracentesis at this time, but if desired for respiratory status, etc., I would advise consulting Interventional Radiology for ultrasound guided paracentesis. Overall, this may end up be ing futile. I did share with her the gravity of the situation and that she very well may no t survive this hospitalization. I understand that the palliative team has been consulted in it, fur ther discussions are in process. Hospice care would certainly be appropriate. Thank you for the consultation. GI will follow along.
[2017-02-05] MEDS ORDERED: Vancomycin HCl 1 GM in Premix Bag 1 BAG IVPB SCH (18:00)
[2017-02-05 20:03] VITALS: TEMP 97.6
[2017-02-06] MEDS: Norepinephrine 8 MG/250 ML BAG IVPB PRN (01:02)
[2017-02-06] MEDS: Vasopressin 40 UNIT, Admixture Fee 1 EACH in Sodium Chloride 0.9% 100 ML IV SCH (01:03)
[2017-02-06] MEDS: Albumin 25% 25 GM/100 ML BOT IVPB SCH (03:04)
[2017-02-06] MEDS: Meropenem 1 GM in Sodium Chloride 0.9% 100 ML IVPB SCH (03:04)
--- NOTE | 2017-02-06 12:37 | DS ---
PRIMARY CARE PHYSICIAN: Dr. Cyndi Bauer DATE OF ADMISSION: 02/04/2017 DATE OF : 02/06/2017 DISCHARGE DIAGNOSES: 1. Septic shock secondary to #2. 2. Bacteremia with Escherichia coli and coagulase negative Staphylococcus secondary to #3. 3. Spontaneous bacterial peritonitis. 4. Urinary tract infection. 5. Cirrhosis of the liver secondary to nonalcoholic steatohepatitis. 6. Acute renal insufficiency. 7. Elevated troponin. HOSPITAL COURSE: Ms. Rosas is a pleasant 56-year-old lady who was admitted to [facility] on 02/04/2017. She was in septic shock. Blood cultures grew Escherichia coli and coagulase negative Staphylococcus. Urine cultures grew ESBL Escherichia coli. She also had a diagn ostic paracentesis, with findings suggestive of spontaneous bacterial peritonitis. She was treated with intravenous levofloxacin and meropenem. She was seen by Nephrology, Pulmonology, Gastroenterol ogy and Cardiology services. She had an elevated creatinine of 3.31 on the day of admission, improved to 3.18 on 02/05/2017. She was seen by Palliative Care Service. The patient's family made the decision to make patient a D NR. The patient continued to decline and on 02/06/2017 at 4:13 a.m.
== END 2017-02-06 04:13 | disposition expired | DRG 871 ==
LOC: ERS 13:34 → CCU 16:53
PROVIDERS: ADMIT Internal Medicine; ATTEND Internal Medicine
PROC: 05HM33Z Insertion of Infusion Device into Right Internal Jugular Vein, Percutaneous Approach (ICD-10-PCS; principal; 2017-02-04)
PROC: 0W9G3ZX Drainage of Peritoneal Cavity, Percutaneous Approach, Diagnostic (ICD-10-PCS; 2017-02-04)
DX: A41.51 Sepsis due to Escherichia coli [E. coli] (principal); K65.2 Spontaneous bacterial peritonitis; J96.01 Acute respiratory failure with hypoxia; R65.21 Severe sepsis with septic shock; G93.41 Metabolic encephalopathy; E43 Unspecified severe protein-calorie malnutrition; N17.9 Acute kidney failure, unspecified; I85.00 Esophageal varices without bleeding; K76.6 Portal hypertension; E87.1 Hypo-osmolality and hyponatremia; J98.11 Atelectasis; N39.0 Urinary tract infection, site not specified; E87.2 Acidosis; I24.8 Other forms of acute ischemic heart disease; D69.6 Thrombocytopenia, unspecified; K75.81 Nonalcoholic steatohepatitis (NASH); I10 Essential (primary) hypertension; E11.9 Type 2 diabetes mellitus without complications; Z79.4 Long term (current) use of insulin; E66.9 Obesity, unspecified; Z68.37 Body mass index [BMI] 37.0-37.9, adult; K80.20 Calculus of gallbladder without cholecystitis without obstruction; D64.9 Anemia, unspecified; K72.90 Hepatic failure, unspecified without coma; Z51.5 Encounter for palliative care; K74.60 Unspecified cirrhosis of liver; B95.8 Unspecified staphylococcus as the cause of diseases classified elsewhere; Z66 Do not resuscitate; R40.2423 Glasgow coma scale score 9-12, at hospital admission
CPT/HCPCS: 36415; 36416; 36556; 49083; 51701; 71010; 74174; 76770; 80048; 80053; 81003; 81015; 82140; 82553; 82945; 83605; 83690; 84157; 84484; 85025; 85060; 85610; 85730; 87040; 87070; 87077; 87086; 87149; 87186; 87205; 89051; 93005; 93306; 96365; 96367; A4216; A4353; J1644; J1956; J2185; J2270; J3370; J7050; P9047